=== PATIENT | female | born 1945 | race Caucasian/White ===

== ENCOUNTER 2024-05-18 14:44 | Inpatient (IN) | payer OTHER, SELFPAY ==
[2024-05-18] VITALS (9 sets, daily range): BP systolic 109–187; BP diastolic 55–106; BMI 33.8
--- NOTE | 2024-05-18 10:36 | ED.GENMED ---
History of Present Illness
<Kandis Tolbert PA-C - Last Filed: 05/18/24 18:48>
General
Chief Complaint: Change in Mental Status
Source: patient and family
Exam Limitations: none
Time Seen by Provider: 05/18/24 10:07
Nursing documentation reviewed up to this point in time: agreed with
History of Present Illness
History of Present Illness:
78-year-old female presents to the emergency department with family for evaluation of altered mental status. Patient and family state that at some time on Wednesday they noticed an acute change in her mental status stating that she appeared much more
confused. Apparently she forgot the code to the garage and had a few other instances of acute confusion and states that she is not acting herself. Patient herself does agree that she feels 'off '. Symptoms have persisted a few days and so they
brought her in for evaluation. They do state that she has seemed somewhat unstable on her feet and 'shaky '.
Patient denies any headache or recent trauma. Patient denies any dizziness, visual changes, chest pain, or shortness of breath. Patient denies any urinary symptoms.
Patient has a history of hypertension for which she is somewhat noncompliant with BP meds. She also is a history of PE for which she is prescribed Eliquis and is also somewhat noncompliant
Past History
<Kandis Tolbert PA-C - Last Filed: 05/18/24 18:48>
Past History
ED Past Medical History: HTN; Negative Hypercholesterolemia, IDDM, NIDDM, PR or Renal failure
ED Past Surgical History: Cholecystectomy
Social History
Tobacco: Non-smoker
Alcohol: Occasional
Drug: None
Personal:
Living: with family
Employment: Employed
Family History
Family History: Hypertension
Review of Systems
<Kandis Tolbert PA-C - Last Filed: 05/18/24 18:48>
Review of Systems
Allergies reviewed?: Yes
All Other Systems: ROS reviewed and negative except as documented in HPI and ROS
Phy Exam
<Kandis Tolbert PA-C - Last Filed: 05/18/24 18:48>
Physical Exam
Physical Exam:
Vitals: Hypertensive, otherwise vital signs stable.
General: Patient is well appearing, no acute distress
Skin: Warm and dry, no rashes or lesions
Head: Normocephalic, atraumatic
Eyes: Sclera nonicteric. EOMs intact. No nystagmus. Pupils equal round reactive light bilaterally
Throat: Protecting airway
Neck: Normal ROM, no cervical spine tenderness, no meningismus
Cardiac: Regular rate and rhythm, no murmurs.
Pulm: Normal respiratory effort, no wheezes, rales, rhonchi heard on exam.
Abdomen: Abdomen soft. no abdominal tenderness.
Extremities: No evidence of cyanosis or edema
Neuro: AAOx2 to person and place, not time. CN II-XII intact. No focal neurologic deficits.
Psychiatric: Normal affect.
Course
<Kandis Tolbert PA-C - Last Filed: 05/18/24 18:48>
Orders/Labs/Results
Orders:
Orders
05/18/24 10:38
Electrocardiogram (*1) Urgent
Reason for Study: Hypertension, Benign
CT Head W/o Iv Contrast Urgent
Comment:
Reason For Exam: Hypertension, confusion
EKG- Treatment ONCE
05/18/24 11:05
Complete Blood Count/With Diff Urgent
Comprehensive Metabolic Panel Urgent
Troponin I Urgent
05/18/24 11:21
Aspirin Chewable [Low Strength Aspirin] 324 mg PO NOW STA
Lorazepam [Ativan] 1 mg IV NOW STA
05/18/24 11:40
Urinalysis Reflex To Culture Urgent
Date Specimen was Collected: 05/18/24
Time Specimen was Collected: 11:
Urine Microscopic Reflex Cult Urgent
Urine Culture Urgent
GUTIERREZ Source: U
Specimen Description:
Date Specimen was Collected: 05/18/24
Time Specimen was Collected: 11:
05/18/24 14:20
Admit/Transfer Patient As Directed
Co-Sign Provider:
Level of Care: Inpatient admission
Assign to:: Telemetry
Physician / Group: Hospitalist
Diagnosis: CVA
Reason for Telemetry: CVA/TIA
Date to Stop Telemetry: 05/21/24
Time to Stop Telemetry: 11:00
Reason for Hospitalization: CVA
Expected length of stay greater than two midnights?: Yes
ELOS- Estimated Length of Stay in days: 2
I certify the patient meets the requirements for IP care: Yes
05/18/24 14:24
Code Status As Directed
Resuscitation Status: Do not resuscitate
Reached after discussion with pt or family/Healthcare POA: Yes
DNR Bracelet Application ONCE
05/18/24 16:14
0.9% Sodium Chloride [Nss (Preservative Free)] See Protocol IV PRN PRN
Acetaminophen [Tylenol/Feverall] 650 mg RECTAL Q4HPRN PRN
Acetaminophen [Tylenol] 650 mg PO Q4HPRN PRN
FOLic ACID [Folvite] 1 mg PO DAILY
FOLic ACID [Folvite] 1 mg 0.9% Sodium Chloride 50 ml [Nss] 50 ml IV DAILYPRN
Lorazepam [Ativan] 0.5 mg IV Q1HPRN PRN
Lorazepam [Ativan] 1 mg IV Q1HPRN PRN
05/18/24 16:14
Echo 2D MMode Color/Doppler Routine
Reason for Study: stroke/TIA
Case Management Consult ONCE
Case Management Consult: Discharge Planning
Comment: stroke/tia
Case Management Consult Once
Case Management Consult: Other
Comment: Substance abuse counseling
DIETARY CONSULT Routine
Reason for Consult: Nutrition support, possible refeeding guidelines
DIETARY CONSULT Routine
Reason for Consult: stroke/TIA
NEUROLOGY CONSULT Urgent
Consulting Provider: Ellis Dias
Was physician already notified: Yes
Reason for consult: cva
Stock Crane Operator Urgent
Alcohol Urgent
B-Hydroxybutyrate Urgent
GGTP Urgent
Magnesium Urgent
PTT Urgent
Phosphorus Urgent
Prothrombin Time Urgent
Urine Drug Abuse Screen Routine
MR Brain Without Contrast Routine
Comment:
Reason For Exam: stroke/TIA
Recent pill cam endoscopy?: No
Activity As Directed
Activity Level: Ambulate
MSAS SCORE As Directed
MSAS Score 0-4: Repeat MSAS every 2 hours until 0-4 for three consecutive assessments, then every 4 hours x 48
hours.
MSAS Score 5-7: For MILD withdrawl symptoms. Repeat MSAS and RASS every 2 hours
MSAS Score 8-11: For MODERATE withdrawal symptoms. Repeat MSAS and RASS every 1 hour. Consider ICU or IMU
level of care.
MSAS Score > 11: For SEVERE withdrawal symptoms. Repeat MSAS and RASS every 1 hour. Notify provider, consider
ICU level of care.
MSAS Additional Instructions: If no improvement or no decrease in score from severe to moderate within 12
hours, consult psychiatry
MSAS Notify Provider: Notify provider if patient requires more than 10 mg of Lorazepam in eight hour period.
NIH Stroke Scale As Directed
Directions: Per protocol
Comment: every shift and with any change in condition or mental status
Neurological Checks As Directed
Frequency: q4h
Additional Instructions:: q4h x 24h upon admission to the floor, then qshift & with any change in condition
and mental status
Patient Education As Directed
Type: Other education
Other patient education: statin
Patient Education As Directed
Type: Stroke education packet
Comment: provide to patient and family
Swallow Screening CVA/TIA ONLY As Directed
Comment: NPO until swallowing screening completed
If patient FAILS swallow screening:: NPO, Speech Therapy consult, Aspiration Precautions
If patient PASSES swallow screening, diet:: Sodium, 4 Gram
Above diet order entered?: Yes- passed screening
Vital Signs As Directed
Frequency: Per unit guidelines
Ot Eval And Treat Routine
Pt Eval And Treat Routine
Activity Level: Ambulate
Speech Therapy Eval & Treat Routine
DX Deep Vein Thrombosis Video Routine
05/18/24 16:27
Lorazepam [Ativan] 0.5 mg PO Q2HPRN PRN
05/18/24 18:00
Atorvastatin [Lipitor] 20 mg PO QPM
Enoxaparin Sodium [Lovenox] 40 mg SC QPM
05/18/24 20:00
Thiamine Injection 200 mg IV Q12
05/19/24 06:00
Cardiovascular Evaluation IN AM
05/21/24 11:00
DC Protocol for Telemetry ONCE
05/21/24 20:00
Thiamine HCl [Vitamin B1] 100 mg PO BID
Abnormal Lab Results
05/18/24 05/18/24
11:05 11:40
RBC 5.61 H 10^6/uL
(4.20-5.40)
Hgb 16.4 H g/dL
(12.0-16.0)
Hct 47.8 H %
(37.0-47.0)
Absolute Lymphs (auto) 1.0 L 10^3/uL
(1.2-3.4)
Lymphocytes % 14.2 L %
(20.5-51.1)
Glucose 155 H mg/dl
(70-99)
AST 78 H U/L
(14-36)
ALT 61 H U/L
(0-35)
Alkaline Phosphatase 131 H U/L
(38-126)
Urine Nitrite (Reflex) Positive A
(Negative)
Urine Bacteria (Reflex) Many A
(Negative)
05/18/24 11:05
05/18/24 11:05
Vital Signs
Initial and Last Documented VS:
Initial Vital Signs
Temp Pulse Resp BP Pulse Ox
98.7 F 65 18 184/106 97
05/18/24 09:59 05/18/24 09:59 05/18/24 09:59 05/18/24 09:59 05/18/24 09:59
Last Documented Vital Signs
Temp Pulse Resp BP Pulse Ox
97.7 F 93 18 142/90 93
05/18/24 17:08 05/18/24 17:08 05/18/24 17:08 05/18/24 17:08 05/18/24 17:08
<Richar Avilez, DO - Last Filed: 05/18/24 11:25>
Orders/Labs/Results
Orders:
Orders
05/18/24 10:38
Electrocardiogram (*1) Urgent
Reason for Study: Hypertension, Benign
CT Head W/o Iv Contrast Urgent
Comment:
Reason For Exam: Hypertension, confusion
EKG- Treatment ONCE
05/18/24 11:05
Complete Blood Count/With Diff Urgent
Comprehensive Metabolic Panel Urgent
Troponin I Urgent
05/18/24 11:21
Aspirin Chewable [Low Strength Aspirin] 324 mg PO NOW STA
Lorazepam [Ativan] 1 mg IV NOW STA
05/18/24 11:40
Urinalysis Reflex To Culture Urgent
Date Specimen was Collected: 05/18/24
Time Specimen was Collected: 11:27
Urine Microscopic Reflex Cult Urgent
Urine Culture Urgent
GUTIERREZ Source: U
Specimen Description:
Date Specimen was Collected: 05/18/24
Time Specimen was Collected: 11:27
05/18/24 14:20
Admit/Transfer Patient As Directed
Co-Sign Provider:
Level of Care: Inpatient admission
Assign to:: Telemetry
Physician / Group: Hospitalist
Diagnosis: CVA
Reason for Telemetry: CVA/TIA
Date to Stop Telemetry: 05/21/24
Time to Stop Telemetry: 11:00
Reason for Hospitalization: CVA
Expected length of stay greater than two midnights?: Yes
ELOS- Estimated Length of Stay in days: 2
I certify the patient meets the requirements for IP care: Yes
05/18/24 14:24
Code Status As Directed
Resuscitation Status: Do not resuscitate
Reached after discussion with pt or family/Healthcare POA: Yes
DNR Bracelet Application ONCE
05/18/24 16:14
0.9% Sodium Chloride [Nss (Preservative Free)] See Protocol IV PRN PRN
Acetaminophen [Tylenol/Feverall] 650 mg RECTAL Q4HPRN PRN
Acetaminophen [Tylenol] 650 mg PO Q4HPRN PRN
FOLic ACID [Folvite] 1 mg PO DAILY
FOLic ACID [Folvite] 1 mg 0.9% Sodium Chloride 50 ml [Nss] 50 ml IV DAILYPRN
Lorazepam [Ativan] 0.5 mg IV Q1HPRN PRN
Lorazepam [Ativan] 1 mg IV Q1HPRN PRN
05/18/24 16:14
Echo 2D MMode Color/Doppler Routine
Reason for Study: stroke/TIA
Case Management Consult ONCE
Case Management Consult: Discharge Planning
Comment: stroke/tia
Case Management Consult Once
Case Management Consult: Other
Comment: Substance abuse counseling
DIETARY CONSULT Routine
Reason for Consult: Nutrition support, possible refeeding guidelines
DIETARY CONSULT Routine
Reason for Consult: stroke/TIA
NEUROLOGY CONSULT Urgent
Consulting Provider: Ellis Dias
Was physician already notified: Yes
Reason for consult: cva
Stock Crane Operator Urgent
Alcohol Urgent
B-Hydroxybutyrate Urgent
GGTP Urgent
Magnesium Urgent
PTT Urgent
Phosphorus Urgent
Prothrombin Time Urgent
Urine Drug Abuse Screen Routine
MR Brain Without Contrast Routine
Comment:
Reason For Exam: stroke/TIA
Recent pill cam endoscopy?: No
Activity As Directed
Activity Level: Ambulate
MSAS SCORE As Directed
MSAS Score 0-4: Repeat MSAS every 2 hours until 0-4 for three consecutive assessments, then every 4 hours x 48
hours.
MSAS Score 5-7: For MILD withdrawl symptoms. Repeat MSAS and RASS every 2 hours
MSAS Score 8-11: For MODERATE withdrawal symptoms. Repeat MSAS and RASS every 1 hour. Consider ICU or IMU
level of care.
MSAS Score > 11: For SEVERE withdrawal symptoms. Repeat MSAS and RASS every 1 hour. Notify provider, consider
ICU level of care.
MSAS Additional Instructions: If no improvement or no decrease in score from severe to moderate within 12
hours, consult psychiatry
MSAS Notify Provider: Notify provider if patient requires more than 10 mg of Lorazepam in eight hour period.
NIH Stroke Scale As Directed
Directions: Per protocol
Comment: every shift and with any change in condition or mental status
Neurological Checks As Directed
Frequency: q4h
Additional Instructions:: q4h x 24h upon admission to the floor, then qshift & with any change in condition
and mental status
Patient Education As Directed
Type: Other education
Other patient education: statin
Patient Education As Directed
Type: Stroke education packet
Comment: provide to patient and family
Swallow Screening CVA/TIA ONLY As Directed
Comment: NPO until swallowing screening completed
If patient FAILS swallow screening:: NPO, Speech Therapy consult, Aspiration Precautions
If patient PASSES swallow screening, diet:: Sodium, 4 Gram
Above diet order entered?: Yes- passed screening
Vital Signs As Directed
Frequency: Per unit guidelines
Ot Eval And Treat Routine
Pt Eval And Treat Routine
Activity Level: Ambulate
Speech Therapy Eval & Treat Routine
DX Deep Vein Thrombosis Video Routine
05/18/24 16:27
Lorazepam [Ativan] 0.5 mg PO Q2HPRN PRN
05/18/24 18:00
Atorvastatin [Lipitor] 20 mg PO QPM
Enoxaparin Sodium [Lovenox] 40 mg SC QPM
05/18/24 20:00
Thiamine Injection 200 mg IV Q12
05/19/24 06:00
Cardiovascular Evaluation IN AM
05/21/24 11:00
DC Protocol for Telemetry ONCE
05/21/24 20:00
Thiamine HCl [Vitamin B1] 100 mg PO BID
Abnormal Lab Results
05/18/24 05/18/24
11:05 11:40
RBC 5.61 H 10^6/uL
(4.20-5.40)
Hgb 16.4 H g/dL
(12.0-16.0)
Hct 47.8 H %
(37.0-47.0)
Absolute Lymphs (auto) 1.0 L 10^3/uL
(1.2-3.4)
Lymphocytes % 14.2 L %
(20.5-51.1)
Glucose 155 H mg/dl
(70-99)
AST 78 H U/L
(14-36)
ALT 61 H U/L
(0-35)
Alkaline Phosphatase 131 H U/L
(38-126)
Urine Nitrite (Reflex) Positive A
(Negative)
Urine Bacteria (Reflex) Many A
(Negative)
05/18/24 11:05
05/18/24 11:05
Vital Signs
Initial and Last Documented VS:
Initial Vital Signs
Temp Pulse Resp BP Pulse Ox
98.7 F 65 18 184/106 97
05/18/24 09:59 05/18/24 09:59 05/18/24 09:59 05/18/24 09:59 05/18/24 09:59
Last Documented Vital Signs
Temp Pulse Resp BP Pulse Ox
97.7 F 93 18 142/90 93
05/18/24 17:08 05/18/24 17:08 05/18/24 17:08 05/18/24 17:08 05/18/24 17:08
<Kandis Tolbert PA-C - Last Filed: 05/18/24 18:48>
MDM/Problems Addressed
Differential Diagnosis Includes:
Not limited to: CVA, medication side effect, metabolic encephalopathy, UTI, hyponatremia, hypertensive urgency/emergency
MDM/Problems Addressed:
78-year-old female with history as documented presenting for evaluation of acute change in mental status occurring 2 days ago associated with some odd behavior. Patient somewhat noncompliant with Eliquis and hypertensive medications. No other
infectious symptoms or neurologic complaints. No visual changes. No headache or dizziness. No recent trauma. Patient is hypertensive on arrival, otherwise vital signs stable. Patient without any focal neurologic deficits on exam. She is alert
and oriented x [address], not time. Heart regular rate and rhythm. Lungs clear bilaterally. EKG shows sinus tachycardia but any acute ischemic changes. Labs noted no clinically significant abnormalities. Troponin is normal. Urine
is positive for nitrate but no clear indication of infection. She has no urinary symptoms at this time. Do not suspect cause for acute change in mental status.
Head CT does show evidence of a likely subacute left ROTOFORMER BACKTENDER nonhemorrhagic infarct. No evidence for acute ischemic stroke. Patient was given aspirin. Patient will be admitted for further stroke workup and management. Discussed with
hospitalist�accepted to hospitalist service. Patient seen with attending physician
Chronic conditions affecting care:
History of DVT/PE on Eliquis, hypertension
Acute Exacerbation and/or Progression of Chronic Illness:
Acutely hypertensive
<Kandis Tolbert PA-C - Last Filed: 05/18/24 18:48>
*Radiology
Radiology exam reviewed: preliminary read by ED provider and radiology read reviewed
*Pulse Oximetry
Patient hypoxic: no
*EKG
Interpreted by ED Provider?: Yes
EKG Intrepretation Date: 05/18/24
Interpretation: abnormal
Comparison EKG: no comparison EKG present
Heart Rate: 111
Rate: tachycardiac
Rhythm: sinus and PVC's
QRS Pattern: normal QRS
Ischemia: non-specific ST changes
*Senior Data Scientist Interpretation
Rate: tachycardiac
Interpretation: normal
Heart Rate: 102
Rhythm: sinus
*Critical Care Note
Total Time (30-74mins, 75-104mins- exclusive of procedures): Not Applicable
<MIN Akhtar Last Filed: 05/18/24 18:48>
Patient Management
Discussion with other providers: Hospitalist
Escalation/DeEscalation of care consider admission/obs:
Admit for stroke workup/further management
ED Attending Note
<Kandis Tolbert PA-C - Last Filed: 05/18/24 18:48>
-
Portions of this chart may have been created with voice recognition software.� Occasional wrong word or��sound alike� substitutions may have occurred due to the inherent limitations of voice recognition software.
<Richar Avilez DO - Last Filed: 05/18/24 11:25>
ED Attending Note
Patient seen and examined by attending physician: Yes
I performed the substantive portion of visit, reviewed & personally made and approve the management plan that is documented in note by myself or JOSÉ MIGUEL.: Yes
ED Attending Note:
I have seen and evaluated the patient with a [id number] encounter. I have spoken to the advance practicer provider and involved in the medical history, the physical exam, medical decision making.
Evaluation and management service: agree unless noted differently below.
Results interpretation: agree unless noted differently below.
Focused HPI: 78-year-old female presenting with family for evaluation of altered mental status. They have noted odd behavior over the past few days which is unlike her. Patient does acknowledge that she feels off
Physical exam: Sitting in bed comfortably. Anxious and upset. Mildly tachycardic. No focal deficit
Medical Decision Making: CT head concerning for subacute stroke. Will give aspirin. Patient does acknowledge noncompliance with blood pressure medicine. Will admit for further stroke workup
Discharge Plan
Departure
Patient Disposition: Admit
Date of Disposition: 05/18/24
Time of Disposition: 11:20
Presentation/result/management discussed w/ accepting MD/DO: Hospitalist
Discharge Problem:
CVA (cerebral vascular accident)
Interventions
Interventions:
*Risk Screen - Suicide Last Done: 05/18/24 10:01
*General Assessment Last Done: 05/18/24 10:01
*Neglect/Abuse Screening Last Done: 05/18/24 10:01
*ED COVID-19 Vaccine History Last Done: 05/18/24 16:33
*Nursing Disposition Last Done: 05/18/24 16:26
ED- Neurological Assessment Last Done: 05/18/24 10:52
ED Swallowing Screen Last Done: 05/18/24 10:37
Discharge Date and Time
Discharge Date/Time: 05/18/24 16:27
[2024-05-18 11:19] LABS: % Basophils 0.7 % (0-2); % Eosinophils 2.8 % (0-6); % Immature Granulocytes 0.3 % (0-0.5); % Lymphocytes 14.2 % (20.5-51.1); % Monocytes 6.9 % (1.7-9.3); % Neutrophils 75.1 % (42.2-75.2); Absolute Basophils 0.1 10^3/uL (0-0.2); Absolute Eosinophils 0.2 10^3/uL (0-0.7); Absolute Monocytes 0.5 10^3/uL (0.1-0.6); Absolute Neutrophils 5.1 10^3/uL (1.4-6.5); Hematocrit 47.8 % (37.0-47.0); Hemoglobin 16.4 g/dL (12.0-16.0); Mean Corp Hgb Conc. 34.3 g/dL (33.0-37.0); Mean Corpuscular Hgb 29.2 pg (27.0-31.0); Mean Corpuscular Volume 85.2 fL (81.0-99.0); Mean Platelet Volume 9.5 fL (7.4-10.4); Nucleated Red Blood Cells % 0 %; Platelet Count 232 10^3/uL (130-400); Red Blood Cell Count 5.61 10^6/uL (4.20-5.40); Red Cell Dist. Width 13.2 % (11.5-14.5); White Blood Cell Count 6.8 10^3/uL (4.8-10.8)
[2024-05-18 11:31] LABS: ALT (SGPT) 61 U/L (0-35); AST (SGOT) 78 U/L (14-36); Albumin 4.3 g/dl (3.5-5.0); Alkaline Phosphatase 131 U/L (38-126); Blood Urea Nitrogen 11 mg/dl (7-17); Calcium 9.4 mg/dl (8.4-10.2); Carbon Dioxide 25 mmol/L (22-30); Chloride 102 mmol/L (98-107); Glucose 155 mg/dl (70-99); Sodium 136 mmol/L (135-145); Total Bilirubin 0.8 mg/dl (0.2-1.3); Total Protein 7.2 g/dl (6.3-8.2); eGFR > 60.00
[2024-05-18] MEDS: LOW STRENGTH ASPIRIN 324 MG PO (11:37)
[2024-05-18] MEDS: ATIVAN 1 MG IV (11:37)
[2024-05-18 11:43] LABS: Troponin I < 0.012 ng/ml
[2024-05-18 12:21] LABS: Urine Albumin Trace (Neg - Trace); Urine Bilirubin Negative (Negative); Urine Character Clear (Clear); Urine Color Yellow; Urine Glucose Negative (Negative); Urine Ketone Negative (Negative); Urine Leukocyte Negative (Negative); Urine Nitrite Positive (Negative); Urine Occult Blood Negative (Negative); Urine Specific Gravity 1.005 (<1.030); Urine Urobilinogen Negative (Neg - 1+)
[2024-05-18 12:43] LABS: Urine Bacteria Many (Negative); Urine Red Blood Cell 0-2 /HPF (0-2); Urine Urothelial Cell 0-2 /LPF (FEW)
--- NOTE | 2024-05-18 13:41 | HPS.HSE ---
Family Physician
-
Family Physician: Luciano Price
Chief Complaint
-
Mental status change
History of Present Illness
78-year-old female with mental status change.
She forgot to go to the garage and a few other instances and had some confusion. Son and daughter at bedside both state that the patient has been having some decline in her cognition for the past 3 years. She was bad for the past 2 days. No fever
patient denies any headache, nausea, numbness tingling, weakness, dysphagia, diplopia or change in vision.
Medical History
Past Medical History
Past Medical History: Reports Other
Additional Past Medical History:
History of pulmonary embolism, hypertension, DVT right leg, history of diverticulitis, peptic ulcer disease, nephrolithiasis, osteoarthritis
Past Surgical History: Reports Other
Additional Past Surgical History:
Cholecystectomy procedure for kidney stone
Social History
Tobacco: Former Smoker
Alcohol: Other (Drinks 2 glass of water every other day)
Drug: None
Living: With Family
Family History
Family History: Other (Mother of an aneurysm in the brain)
Allergies / Home Medications
Allergies reflects when Allergies were last updated in [facility].
Home Medications with original date entered in [facility]
Allergy/Medication List:
Allergies
Allergy/AdvReac Type Severity Reaction Status Date / Time
Iodinated Contrast Media Allergy Hives Verified 05/18/24 10:00
[IV Dye, Iodine Containing
Contrast ]
Home Medications
amlodipine 10 mg-benazepril 20 mg capsule 1 cap PO DAILY Blood Pressure 05/18/24
apixaban 5 mg tablet (Eliquis) 5 mg PO BID Blood Clot prev; h/o PE 05/18/24
Review of Systems
-
A 12 point ROS was completed and negative except as noted: Yes
Respiratory: Denies Trouble Breathing
Cardiac: Denies Chest Pain
Neurological: Reports Other (Confusion); Denies Headache, Weakness or Numbness
Physical Exam
Vital Signs
Vital Signs
Temp Pulse Resp BP Pulse Ox
98.7 F 100 29 153/67 93
05/18/24 09:59 05/18/24 12:00 05/18/24 12:00 05/18/24 12:00 05/18/24 12:00
Physical Exam
General: Comfortable and Conversant
Respiratory: Clear
Cardiac: S1/S2 and Regular Rhythm
GI: Soft, Non Tender and Normal Bowel Sounds
Musculoskeletal: No Edema
Neuro: Awake, Alert, No Motor Deficits, Cranial Nerves Intact, No Sensory Deficits and DTR's Intact & Symmetrical
Psych: Confused (Appears to have cognitive dysfunction) and Other
Laboratory Results
-
05/18/24 11:05
05/18/24 11:05
Laboratory Results
Total Bilirubin 0.8 mg/dl (0.2-1.3) 05/18/24 11:05
AST 78 U/L (14-36) H 05/18/24 11:05
ALT 61 U/L (0-35) H 05/18/24 11:05
Alkaline Phosphatase 131 U/L (38-126) H 05/18/24 11:05
Troponin I < 0.012 ng/ml 05/18/24 11:05
Data Reviewed
-
CT Scan: Report Reviewed by me (CT of the head-subacute left VP SALES territory nonhemorrhagic infarct. No midline shift or mass effect. Ex-vacuo dilatation of the left lateral ventricle. Global parenchymal volume loss)
Medical Tests (Nuc Med, Echo, EKG etc): Image Personally Visualized and interpreted (Sinus tachycardia with rate of 111, premature supraventricular complexes, inferior infarct age undetermined.)
Impression/Plan
-
IMPRESSION/PLAN:
# Mental status change
Admit to telemetry
Differentials include stroke versus other causes like infection
Proceed with neurochecks, NIH scale
Permissive hypertension
MRI of the brain
Start Statin
Lipid Panel in am
Neurology evaluation
PT OT and speech eval
Urinalysis not consistent with a UTI
# Possible decline in cognitive function over the past 3 years
Cognitive evaluation as outpatient discussed with patient's son and daughter
# Hypertension-hold amlodipine-benazepril
Permissive hypertension
# History of PE and DVT -Eliquis on hold for now and restart when okay with neurology
DVT/PE was in 2020. Only 1 instance
Unclear why she is still on anticoagulation. Family states that she has not seen a clinical application manager or station tender PCP keeps around anticoagulation.
# History of nephrolithiasis
# Peptic ulcer disease-does not seem to be on any medicines
# Diverticulosis
# Osteoarthritis
# Alcohol use-2 drinks of vodka every other day per son. Discussed that she needs to stop it
MSAS protocol and also thiamine supplementation
# DVT prophylaxis-Lovenox
# CODE STATUS- DNR per D/W Pt and daughter
Discussed with son and Daughter at bedside
[2024-05-18] MEDS: LOVENOX 40 MG SC (17:26)
[2024-05-18] MEDS: FOLVITE 1 MG PO (17:28)
[2024-05-18] MEDS: LIPITOR 20 MG PO (17:28)
--- NOTE | 2024-05-18 18:27 | PTCARENOTE ---
Patient received from ER at 1600 awake and alert . Able to follow simple commands. Did not know month, knew her age. Family stated patient has had difficulty over last few days with word finding. NIH completed . Urine pending. Swallow eval
complete and passed. Pt on bed alarm but utilizing call fierro . Family in room at present. No c/o pain.
[2024-05-18] MEDS: THIAMINE INJECTION 200 MG IV (20:00)
[2024-05-18 21:47] LABS: GGTP 128 U/L (12-43); Phosphorus 2.9 mg/dl (2.5-4.5)
[2024-05-18 21:51] LABS: Alcohol None Detected
[2024-05-19] VITALS (7 sets, daily range): BP systolic 126–192; BP diastolic 75–95; PULSE 53; O2SAT 98
--- NOTE | 2024-05-19 08:07 | W.PN.HOSP.TC ---
Addendum entered and electronically signed by Jose Alberto Pillai MD 05/19/24 17:00:
ECHO-Normal biventricular size and systolic function without regional wall motion abnormality. Estimated LVEF 60-65%.Mild concentric left ventricular hypertrophy.Mild aortic stenosis. Mild aortic regurgitation.Interatrial septum is intact with no
evidence of shunting by color flow Doppler.
CUS - Less than 50 % stenosis
MRI- MULTIPLE ACUTE ISCHEMIC INFARCTS in the LEFT CEREBRAL HEMISPHERE involving the cortical dave matter and white matter of the left frontal, parietal, and occipital lobes measuring up to 4.8 cm in size in the posterior left parietal-occipital lobe
junction. Severe white matter leukoaraiosis in the frontal and parietal lobes.Mild diffuse cerebral and cerebellar volume loss. Moderate mucosal disease in the left sphenoid sinus.
I personally performed a history and physical exam of the patient and discussed management with the resident. I reviewed the resident's note and agree with the documented findings and plan of care HPI/CC except change in documentation.
CVS: S1-S2 normal
Chest: CTA B/L
Abdomen: Soft, NT / Bowel sounds present
Extremities: No edema, normal pulses
MANAGEMENT PROFESSIONAL: Non focal exam, Variable exam for visual field cut on the right inferior quadrant
# Acute and ischemic infarct in the left cerebral hemisphere, parietal and occipital lobes
Possibly atheroembolic
Intracranial atherosclerosis noted on MRA
Continue aspirin, statin
Restart Eliquis on 05/21/2024 along with aspirin per neurology
Echo and carotid ultrasound ordered
PT OT and speech eval
Patient should not be driving
Outpatient library monitor for 2 weeks and if no A-fib then Linq
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
# B12 deficiency-needs replacement. 1000 mcg IM daily for now. Then weekly with PCP . (Resident to call and arrange with PCP office tomorrow)
# Abnormal urine culture will do 3 days of ceftriaxone to treat cystitis
# Hypertension-eventually restart amlodipine/benazepril
# History of PE and DVT -Eliquis on hold for now and restart when okay with neurology
DVT/PE was in 2020. Only 1 instance
Unclear why she is still on anticoagulation. Family states that she has not seen a academic department chair or alteration worker PCP keeps around anticoagulation.
# History of nephrolithiasis
# Elevated LFTs-likely secondary to alcohol use. Discussed with patient's family that she needs to stop alcohol and repeat LFTs as OP
# Peptic ulcer disease-does not seem to be on any medicines. Add Pepcid with Anticoagulant and antiplatelet and alcohol
# Diverticulosis
# Osteoarthritis
# Alcohol use-2 drinks of vodka every other day per son. Discussed that she needs to stop it.MSAS protocol and also thiamine supplementation
# DVT prophylaxis-Lovenox
# CODE STATUS- DNR per D/W Pt and daughter
D/W family
D/W Neurology
Tiokme more than 50 min
Original Note:
Today's Communication/Plan
-
Brain MRI pending
Assessment / Plan
Assessment / Plan
# Mental status change
- stroke versus other causes like infection
- Permissive hypertension
- Pending MRI of the brain
- Start Statin
- Lipid Panel in am
- Nuero consulted
- PT OT and speech eval
- Urinalysis not consistent with a UTI
- Carotid USG: B/L : A mix of calcified and soft plaque is identified in the proximal internal carotid artery. Carotid velocity profile is consistent with less than 50% stenosis. Vertebral artery flow is antegrade
CT Head 05/18/24: Subacute left RESIDENTIAL SUPPORT WORKER territory nonhemorrhagic infarct. No midline shift or mass effect.
# Possible decline in cognitive function over the past 3 years
Cognitive evaluation as outpatient discussed with patient's son and daughter
# Hypertension-hold amlodipine-benazepril
Permissive hypertension
- TTE pending
# History of PE and DVT -Eliquis on hold for now and restart when okay with neurology
DVT/PE was in 2020. Only 1 instance
Unclear why she is still on anticoagulation. Family states that she has not seen a academic department chair or alteration worker PCP keeps around anticoagulation.
# History of nephrolithiasis
# Peptic ulcer disease-does not seem to be on any medicines
# Diverticulosis
# Osteoarthritis
# Alcohol use-2 drinks of vodka every other day per son. Discussed that she needs to stop it
MSAS protocol and also thiamine supplementation
# DVT prophylaxis-Lovenox
# CODE STATUS- DNR per D/W Pt and daughte
Anticipated Discharge: Within 24 hours
Subjective/Interval History
-
Date of Service: May 19, 2024
Objective Data
-
Labs:
Laboratory Results
05/18/24
16:14
PT Cancelled
INR Cancelled
APTT Cancelled
Vital Signs:
Vital Signs
Temp Pulse Resp BP Pulse Ox
97.4 F 82 10 164/95 98
05/19/24 07:58 05/19/24 07:58 05/19/24 07:58 05/19/24 07:58 05/19/24 07:58
I&O
05/18/24 05/19/24 05/20/24
06:59 06:59 06:59
Intake Total 480 / 480
Balance 480 / 480
Review of Systems
-
History Source: Patient
Constitutional: Denies Fever
Respiratory: Denies Cough
Cardiac: Denies Chest Pain
Abdomen/GI: Denies Abdominal Pain
Neuro: Denies Dizzy, Headache or Weakness
Physical Exam
-
General: Well Developed and Well Nourished
HEENT: Normocephalic and Atraumatic
Respiratory: Clear to Auscultation
Cardiac: Regular Rhythm
GI: Soft and Nontender
Skin: Warm and Dry
Neuro: Awake, Alert, Oriented, No Motor Deficits and No Sensory Deficits
Psych: Calm
Data Reviewed
-
Labs: Labs Reviewed by me, Discussed with Physician and Discussed with Patient
[2024-05-19] MEDS: THIAMINE INJECTION 200 MG IV ×2 (08:36→20:24)
[2024-05-19] MEDS: FOLVITE 1 MG PO (08:36)
[2024-05-19 09:46] LABS: HDL Cholesterol 36 mg/dl; LDL Cholesterol, Calculated 118 mg/dl; Total Cholesterol 191 mg/dl (50-199); Triglyceride 189 mg/dl (10-149); Very Low Density Lipoprotein 37 mg/dl (0-30)
--- NOTE | 2024-05-19 10:15 | CM ---
Patient seen bedside with sons, initial assessment completed. Patient resides with her son in a multiple level home, one step to enter. Patient denies DME, VN, or SNF. Patient confirms PCP Luciano Price, pharmacy [facility], confirms prescription
coverage. Patient denies food, housing/utility, transportation insecurities at home. CM received consult for substance use, offered [facility]/resources, patient declines. CM will watch for PT/OT evals, will continue to follow for all discharge planning
needs.
Plan; home no needs, watch for PT/OT evals.
[2024-05-19 11:46] LABS: TSH Reflex To Free T4 3.81 uIU/ml (0.47-4.68)
[2024-05-19 11:50] LABS: Ammonia < 9 umol/L (9-30)
[2024-05-19 11:51] LABS: Ferritin 47.8 ng/ml (11.1-264.0)
[2024-05-19 12:22] LABS: Folate 14.3 ng/ml (2.76-20); Vitamin B12 170 pg/ml (239-931)
[2024-05-19 12:45] LABS: % Basophils 0.9 % (0-2); % Eosinophils 4.5 % (0-6); % Immature Granulocytes 0.3 % (0-0.5); % Lymphocytes 16.4 % (20.5-51.1); % Monocytes 5.8 % (1.7-9.3); % Neutrophils 72.1 % (42.2-75.2); Absolute Basophils 0.1 10^3/uL (0-0.2); Absolute Eosinophils 0.3 10^3/uL (0-0.7); Absolute Lymphocytes 1.1 10^3/uL (1.2-3.4); Absolute Monocytes 0.4 10^3/uL (0.1-0.6); Absolute Neutrophils 4.9 10^3/uL (1.4-6.5); Hematocrit 43.5 % (37.0-47.0); Hemoglobin 15.2 g/dL (12.0-16.0); Mean Corp Hgb Conc. 34.9 g/dL (33.0-37.0); Mean Corpuscular Hgb 29.2 pg (27.0-31.0); Mean Corpuscular Volume 83.7 fL (81.0-99.0); Mean Platelet Volume 9.6 fL (7.4-10.4); Nucleated Red Blood Cells % 0 %; Platelet Count 267 10^3/uL (130-400); Red Cell Dist. Width 13.1 % (11.5-14.5); White Blood Cell Count 6.7 10^3/uL (4.8-10.8)
--- NOTE | 2024-05-19 12:59 | CON.NEURO4 ---
Addendum entered and electronically signed by Ellis Dias MD 05/19/24 14:55:
I saw and evaluated the patient I have reviewed note by Carine Valdes agree the findings of the following comments:
78-year-old woman with a past medical history of DVT/PE, hypertension and obesity presented to hospital with acute change in mental status since approximately 05/16, her family characterizes this change as having some difficulty with operating common
objects like a television remote and also having some confused speech and short-term memory difficulties. This seemed to be an abrupt and sudden change significantly different from the mild short-term memory loss they have observed the patient for
the past couple of years.
Patient has had history of DVT/PE and is on Eliquis 5 mg twice daily.
Neurologic examination significant for short-term memory difficulty her memory recall is 1/5 left after 5 minutes, has some mild word finding difficulties and difficulties with simple subtraction, also shows a right-sided inferior quadrantopia,
normal motor or sensory function and coordination, normal motor or sensory function no pronator drift and normal coordination.
Carotid ultrasound with no significant stenosis less than 50% bilaterally based on velocity criteria
Brain MRI shows acute infarcts in both the left MCA as well as left BLENDER/BRAZE APPLICATOR territories.
MRA of the head shows occlusion of the distal left M1 segment of the MCA artery, also evidence of intracranial atherosclerosis with right MCA artery intracranial stenosis, left clinoid segment carotid stenosis, left BLENDER/BRAZE APPLICATOR intracranial stenosis as well
3 mm saccular aneurysm on the right ICA cavernous segment. No type circulation of the left BLENDER/BRAZE APPLICATOR.
Assessment:
1) Acute ischemic stroke in both the left MCA and BLENDER/BRAZE APPLICATOR territory simultaneously. This could have occurred from a proximal embolic source such as cardiac or aortic sources. right-sided cavernous segmentCannot be from a left carotid source. A
different but a little less likely cause of stroke would be simultaneous strokes from intracranial atherosclerosis and different arterial circulations, does have significant intracranial atherosclerotic disease on MRA of the head. Hypertension is
main risk factor for stroke
2) Intracranial atherosclerotic disease noted on MRA of the head.
3) Left MCA occlusion should not be pursued for thrombectomy given already established infarcts on MRI brain, NIH of 1-2, and more than 48 hours since onset of stroke symptoms
4) History of DVT/PE on Eliquis
5) Hyperlipidemia
6) By history has had mild short term memory difficulties with no functional impairment from this, may be benign or mild cognitive impairment possibly from vascular causes
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
Recommendations
-Place on aspirin 81 mg daily for now
-Acceptable for restarting Apixaban 5 days after her initial stroke symptoms (05/21)
-I do feel that the risks of combined therapy of aspirin and Apixaban would be warranted since she has significant intracranial atherosclerotic disease
-Atorvastatin 40 mg daily
-Goal normotension, avoid aggressive normalization of BP with the left MCA occlusion
-NIH and neurologic checks
-Should not drive with the right inferior quadrantopia, my office will report to V
-Speech, PT/OT
-Check TTE
-Would recommend cardiac monitoring as outpatient, okay to start with short term monitoring of 1-2 weeks, if no atrial fibrillation found would benefit from LINQ device
-Can check a repeated MRA head in 1-2 years to assess any change in the right carotid cavernous aneurysm but this has sufficiently low risk of rupture I don't feel warrants opinion on intervention
Original Note:
Documented by User: Carine Valdes NP 05/19/24 13:24
Consultation - Neurology 4
-
CONSULTING PHYSICIAN: Joellen Dias MD
REFERRING PHYSICIAN: Hospitalists/Dr. Pillai
DICTATED BY: MADI Reed
DATE/TIME OF REQUEST: 05/18/24
DATE/TIME OF CONSULTATION: 05/19/24
Reason for Consultation: Change in mental status
History of Present Illness:
This is a 78-year-old right-handed female who has presented to the hospital on 05/18/24 with report of confusion. Patient has been followed by Neurology as an outpatient in the past by Dr. Jiménez for dizziness, memory change, and tremor. She has
not been to the office since 2021. CT head imaging at that time was unremarkable. Neuro[employer] testing in 12/2021 was 118%, no depression.
Patient's son lives with her. He reports that he has had mild short-term memory issues for the past 3 years. She still drives, shops, cooks, cleans, and manages their finances without any issues. On Wednesday05/15/24 she was at her baseline. The
following day on 05/16/24 he reports that she went to a casino during the day. She called him in the afternoon asking what the combination to get into their garage was, which she has never forgotten. He reports that when he came home from work that
evening she seemed somewhat confused and also couldn't operate their TV remote. He thought maybe she had a little too much to drink and that was why she was behaving bizarrely. The following day (05/17/24) her confusion persisted, she couldn't
operate her cell phone and her gait seemed slightly off-balance. She didn't want to come to the hospital until yesterday morning (05/18/24) he finally convinced her too. CT head was obtained on arrival in the ER and is suggestive of a subacute left
BLENDER/BRAZE APPLICATOR territory ischemic infarct, no LVO. She is on Eliquis 5mg BID due to a history of PE a few years ago. Her son reports that she sometimes forgets to take her medications. She was not a candidate for TNK/IAT due to being outside of the time
window. Today (05/19/24), she reports feeling at her baseline but her sons note she is still confused. She denies any headache, dizziness, vision changes, speech/swallow difficulty, numbness, weakness, chest pain, palpitations, and shortness of
breath.
Past Medical History: HTN, PE, migraines, short term memory loss
Surgical History: Cholecystectomy.
Family History: Mother- from a cerebral aneurysm rupture.
Social History: Every other day alcohol, 2 liquor drinks. Former smoker. Denies illicit drug use.
Allergies: Iodinated contrast media.
Home Medications: See below.
Review of Symptoms:
Patient denies any fever, headache, chest pain, shortness of breath, GI or symptoms.
�Per the HPI.�All systems are reviewed negative except above.
Physical Exam:
The patient is afebrile, abdomen is nondistended, breathing is unlabored, skin is warm and dry, no edema.
NIH Stroke Scale:
I performed the NIH stroke scale on the patient on 05/19/24 at 1100. The patient scored 1 points on the NIH stroke scale assessment, which were assigned as follows: See below.
Neurologic Examination:
The patient is awake, alert and oriented x 3. She is able to follow commands and answer questions appropriately. Severe difficulty with calculation questions. Able to state 8 state names. 1/5 word recall. There is no aphasia or dysarthria. On
cranial nerve assessment, pupils are 3 mm bilateral, round and reactive to light and accommodation. Visual arnold are absent in the RLQ. Extraocular movements are intact. Facial sensations are intact and bilaterally symmetrical, there is no facial
asymmetry. Hearing is intact bilaterally to normal conversation volume. Tongue palate and uvula are midline. Sternocleidomastoid strengths are full bilaterally. Motor strengths are 5/5 bilateral upper and lower extremities on medical research
[place] scale. There is no drift or involuntary movement noted. Deep tendon reflexes are 2+ bilateral upper and lower extremities and Babinski is absent bilaterally. Sensations of pain, touch, temperature and vibration are intact and bilaterally
symmetrical. There was no extinction noted on double simultaneous stimulation. Coordination is intact by finger to nose bilaterally.
Lab Results: See below.
Neuro Imaging:
1. CT Head 05/18/24: Subacute left BLENDER/BRAZE APPLICATOR territory nonhemorrhagic infarct. No midline shift or mass effect. Chronic/incidental findings as detailed in the body of the report.
Differentials for the patient's presentation include:
1. Subacute L BLENDER/BRAZE APPLICATOR territory ischemic stroke suggested by CT head imaging likely producing confusion and RLQ field cut.
2. Hypertension.
3. Possible mild cognitive impairment.
4. Vitamin B12 deficiency.
5. Urine culture positive for E. Coli.
Patient has the following risk factors for their symptoms: HTN, age
IV Tenecteplase/IAT candidacy: She is not a candidate due to outside of time window, no LVO.
Recommendations:
-MRI brain noncontrast, MRA head, and carotid ultrasound pending.
-Will resume home Eliquis 5mg BID based on MRI brain findings.
-TTE pending.
-Goal normotension.
-Infection workup/treatment per primary team.
-LDL goal <70. LDL is 118. Initiate atorvastatin 40mg daily.
-Goal normoglycemia, hbA1c is pending.
-MSAS protocol, thiamine/folate replacement.
-NIHSS and neurological checks per unit guidelines.
-B12 level is low at 170. Initiate cyanocobalamin 1000mcg PO daily.
-PT/OT/ST evaluations.
-DVT prophylaxis.
-No driving.
-Will follow pending results.
-Patient will need outpatient Neurology follow-up in 4-6 weeks, may see the [employer] or one of the physicians.
Discussed patient care with: Dr. Dias, the patient, patient's family.
Vital Signs and Labs
-
Vital Signs and Labs:
Vital Signs
Temp Pulse Resp BP Pulse Ox
97.4 F 82 10 164/95 98
05/19/24 07:58 05/19/24 07:58 05/19/24 07:58 05/19/24 07:58 05/19/24 07:58
Lab Results
05/19/24 12:17
05/18/24 11:05
PT Cancelled 05/18/24 16:14
INR Cancelled 05/18/24 16:14
APTT Cancelled 05/18/24 16:14
Sodium 136 mmol/L (135-145) 05/18/24 11:05
Potassium 4.0 mmol/L (3.5-5.1) 05/18/24 11:05
BUN 11 mg/dl (7-17) 05/18/24 11:05
Glucose 155 mg/dl (70-99) H 05/18/24 11:05
Calcium 9.4 mg/dl (8.4-10.2) 05/18/24 11:05
Phosphorus Cancelled 05/18/24 16:14
Lrr-Y-[id number] Pept Cancelled 05/18/24 10:36
LDL Cholesterol, Calc 118 mg/dl 05/19/24 08:12
Vitamin B12 170 pg/ml (239-931) L 05/19/24 08:12
Medications
-
Active Medications
Generic Name Dose Route Start Last Admin
Trade Name Freq PRN Reason Stop Dose Admin
Acetaminophen 650 mg 05/18/24 16:14
Acetaminophen 650 Mg Rectal Suppository RECTAL 06/15/24 16:13
Q4HPRN PRN
LAM, mild pain, or temp >100.4F
Acetaminophen 650 mg 05/18/24 16:14
Acetaminophen 325 Mg Tablet PO 06/15/24 16:13
Q4HPRN PRN
LAM, mild pain, or temp >100.4F
Atorvastatin Calcium 20 mg 05/18/24 18:00 05/18/24 17:28
Atorvastatin (Lipitor) 20 Mg Tablet PO 06/15/24 17:59 20 mg
QPM SAE Administration
Enoxaparin Sodium 40 mg 05/18/24 18:00 05/18/24 17:26
Enoxaparin Sodium 40 Mg/0.4 Ml Syringe SC 06/15/24 17:59 40 mg
QPM SAE Administration
Folic Acid 1 mg 05/18/24 16:14 05/19/24 08:36
Folic Acid 1 Mg Tablet PO 06/15/24 16:13 1 mg
DAILY SAE Administration
Folic Acid 1 mg/ Sodium 50.2 mls @ 200.8 mls/hr 05/18/24 16:14
Chloride IV 06/15/24 16:13
DAILYPRN PRN
if NPO
Lorazepam 0.5 mg 05/18/24 16:27
Lorazepam 0.5 Mg Tablet PO 06/15/24 16:26
Q2HPRN PRN
MSAS 5-7
Lorazepam 0.5 mg 05/18/24 16:14
Lorazepam 2 Mg/Ml Vial IV 06/15/24 16:13
Q1HPRN PRN
MSAS 8-11
Lorazepam 1 mg 05/18/24 16:14
Lorazepam 2 Mg/Ml Vial IV 06/15/24 16:13
Q1HPRN PRN
MSAS > 11
Lorazepam 0.5 mg 05/19/24 12:00
Lorazepam 2 Mg/Ml Vial IV 05/19/24 18:00
ONCE PRN PRN
prior to MRI
Sodium Chloride 0 ml 05/18/24 16:14
Sodium Chloride 0.9% (Preservative Free) 10 Ml Vial IV 06/15/24 16:13
PRN PRN
To dilute IV Ativan
Protocol
Sodium Chloride 0 flush 05/18/24 17:00
Sodium Chloride 0.9% (Flush) Syringe IV 06/15/24 16:59
PER PROTOCOL SAE
Sodium Chloride 0.25 ml 05/19/24 12:08
Nss (Pf) 10 Ml Vial For Ativan 0.5 Mg Dose IV 05/19/24 18:00
ONCE PRN PRN
IV LORAZEPAM DILUTION
Thiamine HCl 200 mg 05/18/24 20:00 05/19/24 08:36
Thiamine (100 Mg/Ml) 2 Ml Vial IV 05/21/24 08:01 200 mg
Q12 SAE Administration
Thiamine HCl 100 mg 05/21/24 20:00
Thiamine 100 Mg Tablet PO 06/18/24 19:59
BID SAE
Home Medications
�Medication �Instructions �Recorded
amlodipine 10 mg-benazepril 20 mg 1 cap PO DAILY Blood Pressure 05/18/24
capsule
apixaban 5 mg tablet (Eliquis) 5 mg PO BID Blood Clot prev; h/o PE 05/18/24
NIH Stroke Score
Subsequent NIH Scale
Date of Subsequent NIH Scale: 05/19/24
Time of Subsequent NIH Scale: 11:00
NIH Stroke Score
Level of Consciousness: 0 - Alert
LOC Questions: 0-Answers both correctly
LOC Commands: 0-Performs both correctly
Best Horizontal Gaze: 0-Normal
Visual Arnold: 1=Partial hemianopia
Facial Palsy: 0=Normal, symmetrical
Motor - Right Arm: 0=No drift 10 seconds
Motor - Left Arm: 0=No drift 10 seconds
Motor - Right Le-No drift 5 seconds
Motor - Left Le-No drift 5 seconds
Limb Ataxia: 0-Absent
Sensation: 0-Normal
Best Language: 0-No aphasia
Dysarthria: 0-Normal
Extinction and Inattention: 0-No abnormality
Total Score:: 1
Modified Dominique (mRS) Score
Modified [place] Scale (mRS): Moderate disability. Requires some help, able to walk unassisted.
Score: 3
Alteplase Contraindication
Inclusion and Exclusion criteria reviewed: Yes
Reasons for NON-Tx with Thrombolytics ABSOLUTE Exclusions: Greater than 4.5 hrs from onset of sxs

Documented by User: Ellis Dias MD 05/19/24 14:34
NIH Stroke Score
NIH Stroke Score
Total Score:: 1
Modified [place] (mRS) Score
Score: 3
[2024-05-19 14:16] LABS: Benzodiazepines Positive (Negative)
[2024-05-19 14:17] LABS: Amphetamines Negative (Negative); Barbiturates Negative (Negative); Buprenorphine Negative (Negative); Cocaine Negative (Negative); Marijuana Negative (Negative); Methadone Negative (Negative); Methamphetamines Negative (Negative); Opiates Negative (Negative); Phencyclidine Negative (Negative); Tricyclic Antidepressants Negative (Negative)
[2024-05-19 14:37] LABS: Fentanyl, Urine Negative (Negative)
--- NOTE | 2024-05-19 16:06 | PTOTSP ---
SPEECH THERAPY SWALLOW EVALUATION:
Patient exhibits grossly functional oropharyngeal swallow at this time. However, patient remains at risk for aspiration given confusion/memory impairments secondary to acute CVA. Recommend continue Regular texture diet, thin liquids. Medications
whole with thin liquid, one at a time. Aspiration precautions including: Upright positioning; Small single sips/bites; Slow rate of intake; Supervision with meals to ensure use of strategies; Monitor CXR and labs to assess for signs/symptoms of
aspiration. Speech therapy to follow, assess diet tolerance and modify as appropriate, provide continued diagnostic swallow therapy as appropriate, provide continued education regarding aspiration risks/precautions, and complete full
Speech/Language/Cognitive Communication Evaluation.
RECOMMEND:
1) Regular texture diet, thin liquids
2) Medications whole with thin liquid, one at a time
3) Aspiration precautions: Upright positioning; Small single sips/bites; Slow rate of intake; Supervision with meals to ensure use of strategies; Monitor CXR and labs to assess for signs/symptoms of aspiration
4) Speech therapy to follow and complete full Speech/Language/Cognitive Communication Evaluation
[2024-05-19 17:26] LABS: ALT (SGPT) 56 U/L (0-35); AST (SGOT) 70 U/L (14-36); Albumin 4.2 g/dl (3.5-5.0); Alkaline Phosphatase 125 U/L (38-126); Direct Bilirubin 0.3 mg/dl (0.0-0.4); Total Bilirubin 0.9 mg/dl (0.2-1.3)
[2024-05-19] MEDS: LOVENOX 40 MG SC (17:30)
[2024-05-19] MEDS: ASPIR LOW (ENTERIC COATED) 81 MG PO (17:30)
[2024-05-19] MEDS: LIPITOR 40 MG PO (17:30)
[2024-05-19] MEDS: ROCEPHIN 1000 MG IV (17:36)
[2024-05-19] MEDS: CYANOCOBALAMIN 1000 MCG IM (17:36)
[2024-05-19] MEDS: STERILE WATER FOR INJECTION 10 ML IV (17:36)
[2024-05-19] MEDS: PEPCID 20 MG PO (20:24)
[2024-05-20] VITALS (7 sets, daily range): BP systolic 127–174; BP diastolic 68–95
--- NOTE | 2024-05-20 07:37 | W.PN.HOSP.TC ---
Addendum entered and electronically signed by Jose Alberto Pillai MD 05/20/24 13:43:
I personally performed a history and physical exam of the patient and discussed management with the resident. I reviewed the resident's note and agree with the documented findings and plan of care HPI/CC except change in documentation.
Sitting and eating lunch.
Feeling oK
Echo 05/19/2024-normal biventricular size and systolic function. EF 60 to 65%. Mild concentric LVH. Mild . Mild AI.
Carotid ultrasound less than 50% stenosis
# Acute and ischemic infarct in the left cerebral hemisphere, parietal and occipital lobes
Possibly atheroembolic
Intracranial atherosclerosis noted on MRA
Continue aspirin, statin
Restart Eliquis on 05/21/2024 along with aspirin per neurology
PT OT and speech eval
Patient should not be driving-reviewed with patient and daughter
Outpatient monitoring engineer for 2 weeks and if no A-fib then Linq
This is important because right now she takes Eliquis for history of DVT and PE. If she has A-fib then Eliquis cannot be stopped
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
# B12 deficiency-needs replacement. 1000 mcg IM daily for now. Then weekly with PCP .
# Abnormal urine culture will do 3 days of ceftriaxone to treat cystitis
# Hypertension-eventually restart amlodipine/benazepril
# History of PE and DVT -Eliquis on hold for now and restart Eliquis 05/21/24 per neuro
DVT/PE was in 2020. Only 1 instance
#Elevated LFTS-possibly secondary to fatty liver and also alcohol-routine ultrasound
# History of nephrolithiasis
# Elevated LFTs-likely secondary to alcohol use. Discussed with patient's family that she needs to stop alcohol and repeat LFTs as OP
# Peptic ulcer disease-does not seem to be on any medicines. Add Pepcid with Anticoagulant and antiplatelet and alcohol
# Diverticulosis
# Osteoarthritis
# Alcohol use-2 drinks of vodka every other day per son. Discussed that she needs to stop it.MSAS protocol and also thiamine supplementation
# DVT prophylaxis-Lovenox (Eliquis to be restarted tomorrow)
# CODE STATUS- DNR per D/W Pt and daughter
Detailed discussion with the patient's cognitive function, stroke follow-up needs all questions answered
Discussed with nursing
Original Note:
Today's Communication/Plan
-
continue b12
fu with cardio
resume eliquis 05/21/24
Assessment / Plan
Assessment / Plan
# Acute and ischemic infarct in the left cerebral hemisphere, parietal and occipital lobes
- Likely reason of acute mental status change- improving
- Permissive hypertension
- continue aspirin and Statin
- Restart Eliquis on 05/21/2024 along with aspirin per neurology
- Urinalysis not consistent with a UTI
- Carotid USG: B/L : A mix of calcified and soft plaque is identified in the proximal internal carotid artery. Carotid velocity profile is consistent with less than 50% stenosis. Vertebral artery flow is antegrade
- Should not drive with the right inferior quadrantopia
- Atorvastatin 40 mg daily
- Phsyiatry consulted for [facility] per PT/OT recs
CT Head 05/18/24: Subacute left PEOPLESOFT HR DEVELOPER territory nonhemorrhagic infarct. No midline shift or mass effect.
# Possible decline in cognitive function over the past 3 years
-Cognitive evaluation as outpatient discussed with patient's son and daughter
# Cystitis
- UC + for E. Coli
- Iv ceftriaxone 2/3
# B12 deficiency-needs replacement.
- 1000 mcg IM daily for now. Then weekly with PCP .
# Hypertension
Permissive hypertension
- Echo: Normal biventricular size and systolic function without regional wall motion
abnormality. Estimated LVEF 60-65%.
- Not to stop Eliquis until eval by cardio OP
# History of PE and DVT -Eliquis to be resumed on 05/21/24 per neuro recs
- DVT/PE was in 2020. Only 1 instance
- Unclear why she is still on anticoagulation.
# History of nephrolithiasis
# Peptic ulcer disease-does not seem to be on any medicines
# Diverticulosis
# Osteoarthritis
# Alcohol use-2 drinks of vodka every other day per son. Discussed that she needs to stop it
- MSAS protocol and also thiamine supplementation
# DVT prophylaxis-Lovenox
# CODE STATUS- DNR per D/W Pt and daughte
Anticipated Discharge: Within 24 hours
Subjective/Interval History
-
Date of Service: May 20, 2024
Objective Data
-
Labs:
Laboratory Results
05/20/24
06:00
WBC Pending
Hgb Pending
Hct Pending
Plt Count Pending
Sodium Pending
Potassium Pending
Chloride Pending
Carbon Dioxide Pending
BUN Pending
Creatinine Pending
Glucose Pending
Calcium Pending
Total Bilirubin Pending
AST Pending
ALT Pending
Alkaline Phosphatase Pending
Vital Signs:
Vital Signs
Temp Pulse Resp BP Pulse Ox
97.8 F 83 18 136/68 96
05/20/24 03:11 05/20/24 03:11 05/20/24 03:11 05/20/24 03:11 05/20/24 03:11
I&O
05/19/24 05/20/24 05/21/24
06:59 06:59 06:59
Intake Total 480 / 480 600 / 600
Balance 480 / 480 600 / 600
Review of Systems
-
History Source: Patient and Family
Constitutional: Denies Fever, Fatigue or Night Sweats
Cardiac: Denies Chest Pain
Abdomen/GI: Denies Abdominal Pain
Genitourinary: Denies Dysuria or Incontinence
Musculoskeletal: Denies Joint Pain
Skin: Denies Itching
Hematologic / Lymphatic: Denies Bleeding
Physical Exam
-
General: Well Developed, Well Nourished and No Apparent Distress
HEENT: Normocephalic and Atraumatic
Respiratory: Clear to Auscultation
Cardiac: Regular Rhythm
GI: Soft and Nontender
Skin: Warm and Dry
Neuro: Awake, Alert, Oriented, No Motor Deficits and No Sensory Deficits
Psych: Calm
Data Reviewed
-
MRI: Report Reviewed by me, Discussed with Physician and Discussed with Patient
Labs: Labs Reviewed by me, Discussed with Physician and Discussed with Patient
[2024-05-20 08:48] LABS: % Basophils 1.2 % (0-2); % Eosinophils 6.9 % (0-6); % Immature Granulocytes 0.2 % (0-0.5); % Lymphocytes 19.7 % (20.5-51.1); Absolute Basophils 0.1 10^3/uL (0-0.2); Absolute Eosinophils 0.5 10^3/uL (0-0.7); Absolute Lymphocytes 1.3 10^3/uL (1.2-3.4); Absolute Monocytes 0.5 10^3/uL (0.1-0.6); Absolute Neutrophils 4.3 10^3/uL (1.4-6.5); Hematocrit 45.6 % (37.0-47.0); Hemoglobin 15.6 g/dL (12.0-16.0); Mean Corp Hgb Conc. 34.2 g/dL (33.0-37.0); Mean Corpuscular Hgb 29.2 pg (27.0-31.0); Mean Corpuscular Volume 85.2 fL (81.0-99.0); Mean Platelet Volume 9.8 fL (7.4-10.4); Nucleated Red Blood Cells % 0 %; Platelet Count 235 10^3/uL (130-400); Red Blood Cell Count 5.35 10^6/uL (4.20-5.40); Red Cell Dist. Width 13.2 % (11.5-14.5); White Blood Cell Count 6.5 10^3/uL (4.8-10.8)
[2024-05-20 09:32] LABS: ALT (SGPT) 50 U/L (0-35); AST (SGOT) 57 U/L (14-36); Alkaline Phosphatase 133 U/L (38-126); Blood Urea Nitrogen 18 mg/dl (7-17); Calcium 9.3 mg/dl (8.4-10.2); Carbon Dioxide 23 mmol/L (22-30); Chloride 103 mmol/L (98-107); Estimated Creatinine Clearance 52 ml/min; Glucose 137 mg/dl (70-99); Potassium 4.5 mmol/L (3.5-5.1); Sodium 135 mmol/L (135-145); Total Bilirubin 0.6 mg/dl (0.2-1.3); Total Protein 6.9 g/dl (6.3-8.2); eGFR > 60.00
[2024-05-20] MEDS: ASPIR LOW (ENTERIC COATED) 81 MG PO (10:16)
[2024-05-20] MEDS: PEPCID 20 MG PO ×2 (10:17→20:22)
[2024-05-20] MEDS: CYANOCOBALAMIN 1000 MCG IM (10:17)
[2024-05-20] MEDS: THIAMINE INJECTION 200 MG IV ×2 (10:17→20:21)
[2024-05-20] MEDS: FOLVITE 1 MG PO (10:18)
[2024-05-20 10:41] LABS: Glycohemoglobin (HgbA1c) 7.8 % (4.0-5.6)
--- NOTE | 2024-05-20 14:56 | W.PN.NEURO.1 ---
Addendum entered and electronically signed by Nisha Gonsalez DO 05/20/24 20:06:
Echo showed no cardiac source for stroke.
Original Note:
Today's Communication / Plan
-
-Continue aspirin 81 mg daily for now
-Acceptable for restarting Apixaban 5 days after her initial stroke symptoms (05/21)
-TTE
-outpatient ophtho eval
-OP cardiac monitoring
No driving
Neuro Assessment/Plan
Assessment
78-year-old woman with a past medical history of DVT/PE, hypertension and obesity presented to hospital with acute change in mental status since approximately 05/16, her family characterizes this change as having some difficulty with operating common
objects like a television remote and also having some confused speech and short-term memory difficulties. This seemed to be an abrupt and sudden change significantly different from the mild short-term memory loss they have observed the patient for
the past couple of years.
Patient has had history of DVT/PE and is on Eliquis 5 mg twice daily.
Imaging:
Carotid ultrasound with no significant stenosis less than 50% bilaterally based on velocity criteria
Brain MRI shows acute infarcts in both the left MCA as well as left HAMMER FITTER territories.
MRA of the head shows occlusion of the distal left M1 segment of the MCA artery, also evidence of intracranial atherosclerosis with right MCA artery intracranial stenosis, left clinoid segment carotid stenosis, left HAMMER FITTER intracranial stenosis as well
3 mm saccular aneurysm on the right ICA cavernous segment. No type circulation of the left HAMMER FITTER.
Assessments:
1) Acute ischemic stroke in both the left MCA and HAMMER FITTER territory simultaneously. This could have occurred from a proximal embolic source such as cardiac or aortic sources. A different but a little less likely cause of stroke would be simultaneous
strokes from intracranial atherosclerosis and different arterial circulations, does have significant intracranial atherosclerotic disease on MRA of the head. Hypertension is main risk factor for stroke
2) Intracranial atherosclerotic disease noted on MRA of the head.
3) Left MCA occlusion should not be pursued for thrombectomy given already established infarcts on MRI brain, NIH of 1-2, and more than 48 hours since onset of stroke symptoms
4) History of DVT/PE on Eliquis
5) Hyperlipidemia
6) By history has had mild short term memory difficulties with no functional impairment from this, may be benign or mild cognitive impairment possibly from vascular causes
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
Plan
Recommendations
-Continue aspirin 81 mg daily for now
-Acceptable for restarting Apixaban 5 days after her initial stroke symptoms (05/21)
-I do feel that the risks of combined therapy of aspirin and Apixaban would be warranted since she has significant intracranial atherosclerotic disease
-Atorvastatin 40 mg daily
-Goal normotension, avoid aggressive normalization of BP with the left MCA occlusion
-NIH and neurologic checks
-Should not drive with the right inferior quadrantopia, reporting to [facility]; discussed with patient that she should not drive and she is in agreement
-Speech, PT/OT
-Check TTE
-Would recommend cardiac monitoring as outpatient, okay to start with short term monitoring of 1-2 weeks, if no atrial fibrillation found would benefit from LINQ device
-Can check a repeated MRA head in 1-2 years to assess any change in the right carotid cavernous aneurysm but this has sufficiently low risk of rupture I don't feel warrants opinion on intervention
-reviewed s/s of stroke and importance of calling 911 should these recur.
Neurology is signing off. Please call with further questions. Needs f/u in our clinic in 2-3 mos. Please call with further questions.
Subjective/Objective
Subjective Data
Date of Service: May 20, 2024
memory improving per patient and family at bedside
feels vision and speech are also improving
Objective Data
Vital Signs
Temp Pulse Resp BP Pulse Ox
98.2 F 84 19 127/91 95
05/20/24 11:24 05/20/24 11:24 05/20/24 11:24 05/20/24 11:24 05/20/24 11:24
Lab Results
05/20/24 08:09
05/20/24 08:09
PT Cancelled 05/18/24 16:14
INR Cancelled 05/18/24 16:14
APTT Cancelled 05/18/24 16:14
Sodium 135 mmol/L (135-145) 05/20/24 08:09
Potassium 4.5 mmol/L (3.5-5.1) 05/20/24 08:09
BUN 18 mg/dl (7-17) H 05/20/24 08:09
Glucose 137 mg/dl (70-99) H 05/20/24 08:09
Calcium 9.3 mg/dl (8.4-10.2) 05/20/24 08:09
Phosphorus Cancelled 05/18/24 16:14
Bag-S-Axfbrsnvarj Pept Cancelled 05/18/24 10:36
LDL Cholesterol, Calc 118 mg/dl 05/19/24 08:12
Vitamin B12 170 pg/ml (239-931) L 05/19/24 08:12
Ur Buprenorphine Negative (Negative) 05/19/24 12:47
Patient Allergies
Iodinated Contrast Media [IV Dye, Iodine Containing Contrast ] Allergy (Verified 05/18/24 10:00)
Hives
Physical Exam
-
The patient is awake, alert and oriented x 3. She is able to follow commands and answer questions appropriately. 2/5 on backwards spelling but otherwise able to read phrases, sentences. There is no aphasia or dysarthria. On cranial nerve assessment,
pupils are 3 mm bilateral, round and reactive to light and accommodation. Visual jalloh are absent in the RLQ in L eye only today--an improvement. Extraocular movements are intact. Facial sensations are intact and bilaterally symmetrical, there is
no facial asymmetry. Hearing is intact bilaterally to normal conversation volume. Tongue palate and uvula are midline. Sternocleidomastoid strengths are full bilaterally. Motor strengths are 5/5 bilateral upper and lower extremities on medical
research Kane scale. There is no drift or involuntary movement noted. Deep tendon reflexes are 1+ bilateral upper and lower extremities and Babinski is absent bilaterally. Sensations of touch, temperature are intact and bilaterally symmetrical.
There was no extinction noted on double simultaneous stimulation. Coordination is intact by finger to nose bilaterally.
[2024-05-20] MEDS: LOVENOX 40 MG SC (18:23)
[2024-05-20] MEDS: LIPITOR 40 MG PO (18:23)
[2024-05-20] MEDS: ROCEPHIN 1000 MG IV (18:24)
[2024-05-20] MEDS: STERILE WATER FOR INJECTION 10 ML IV (18:24)
[2024-05-21 03:15] VITALS: BP 141/90
[2024-05-21 07:00] VITALS: BP 147/90
--- NOTE | 2024-05-21 07:08 | W.PN.HOSP.TC ---
Addendum entered and electronically signed by Jose Alberto Pillai MD 05/21/24 17:22:
personally performed a history and physical exam of the patient and discussed management with the resident. I reviewed the resident's note and agree with the documented findings and plan of care HPI/CC except change in documentation.
CVS: S1-S2 normal
Chest: CTA B/L
Abdomen: Soft, NT / Bowel sounds present
Extremities: No edema, normal pulses
PHYSICS FACULTY MEMBER: Non focal exam today
# Acute and ischemic infarct in the left cerebral hemisphere, parietal and occipital lobes
Possibly atheroembolic
Intracranial atherosclerosis noted on MRA
Continue aspirin, statin
Restarted Eliquis on 05/21/2024 along with aspirin
Echo and carotid ultrasound noted. Mild
PT OT and speech eval
Patient should not be driving
Outpatient case monitor for 2 weeks and if no A-fib then Linq
# New diagnosis of diabetes with hemoglobin A1c 7.8. Nursing to teach patient and son how to do Accu-Cheks. Also visiting nurses are arranged. Will start metformin 500 twice daily. Hemoglobin A1c repeat in 3 months
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 MRA as OP
# B12 deficiency-needs replacement. 1000 mcg IM daily for now. Then weekly with PCP . (Resident to call and arrange with PCP office tomorrow)
# Abnormal urine culture will do 3 days of ceftriaxone to treat cystitis
# Hypertension-amlodipine/benazepril
# History of PE and DVT -Eliquis
DVT/PE was in 2020. Only 1 instance
Unclear why she is still on anticoagulation. Family states that she has not seen a leather etcher or transit clerk PCP keeps around anticoagulation.
# History of nephrolithiasis
# Elevated LFTs-likely secondary to alcohol use. Discussed with patient's family that she needs to stop alcohol and repeat LFTs as OP. Ultrasound noted and discussed with the family regarding fatty liver.
# Peptic ulcer disease-does not seem to be on any medicines. Add Pepcid with Anticoagulant and antiplatelet and alcohol
# Diverticulosis
# Osteoarthritis
# Alcohol use-2 drinks of vodka every other day per son. Discussed that she needs to stop it.MSAS protocol and also thiamine supplementation
# DVT prophylaxis-Lovenox
# CODE STATUS- DNR per D/W Pt and daughter
D/W family
D/W Neurology
D/W RN
Resident will update 's office tomorrow re B 12 injections.
Discharge coordination time 45 min
Original Note:
Today's Communication/Plan
-
d/c home with VN
Assessment / Plan
Assessment / Plan
# Acute and ischemic infarct in the left cerebral hemisphere, parietal and occipital lobes
- Likely reason of acute mental status change- improving
- Permissive hypertension
- continue Statin
- Restart Eliquis along with aspirin per neurology
- Urinalysis not consistent with a UTI
- Carotid USG: B/L : A mix of calcified and soft plaque is identified in the proximal internal carotid artery. Carotid velocity profile is consistent with less than 50% stenosis. Vertebral artery flow is antegrade
- Should not drive with the right inferior quadrantopia
- Atorvastatin 40 mg daily
- pt/ot recs home PT
CT Head 05/18/24: Subacute left RUBBER GOODS TESTER territory nonhemorrhagic infarct. No midline shift or mass effect.
# Possible decline in cognitive function over the past 3 years
-Cognitive evaluation as outpatient discussed with patient's son and daughter
# Cystitis
- UC + for E. Coli
- Iv ceftriaxone 01/01
# Diabetes
- HbA1C 7.8
- diabetic diet
- start metformin 500mg bid
# B12 deficiency-needs replacement.
- 1000 mcg IM daily for now. Then weekly with PCP .
# Hypertension
Permissive hypertension
- Echo: Normal biventricular size and systolic function without regional wall motion
abnormality. Estimated LVEF 60-65%.
- Not to stop Eliquis until eval by cardio OP
# History of PE and DVT -Eliquis resumed per neuro recs
- DVT/PE was in 2020. Only 1 instance
- Unclear why she is still on anticoagulation.
# History of nephrolithiasis
# Peptic ulcer disease-does not seem to be on any medicines
# Diverticulosis
# Osteoarthritis
# Alcohol use-2 drinks of vodka every other day per son. Discussed that she needs to stop it
- MSAS protocol and also thiamine supplementation
# DVT prophylaxis-Lovenox d/c since patient on eliquis now
# CODE STATUS- DNR per D/W Pt and daughte
Anticipated Discharge: Today
Subjective/Interval History
-
Date of Service: May 21, 2024
Objective Data
-
Labs:
Laboratory Results
05/21/24
06:00
WBC Pending
Hgb Pending
Hct Pending
Plt Count Pending
Sodium Pending
Potassium Pending
Chloride Pending
Carbon Dioxide Pending
BUN Pending
Creatinine Pending
Glucose Pending
Calcium Pending
Total Bilirubin Pending
AST Pending
ALT Pending
Alkaline Phosphatase Pending
Vital Signs:
Vital Signs
Temp Pulse Resp BP Pulse Ox
97.9 F 81 20 141/90 95
05/21/24 03:15 05/21/24 03:15 05/21/24 03:15 05/21/24 03:15 05/21/24 03:15
I&O
05/20/24 05/21/24 05/22/24
06:59 06:59 06:59
Intake Total 600 / 600 1200 / 1200
Balance 600 / 600 1200 / 1200
Review of Systems
-
History Source: Patient
Constitutional: Denies Fever
Respiratory: Denies Cough
Cardiac: Denies Chest Pain
Abdomen/GI: Denies Abdominal Pain
Musculoskeletal: Denies Joint Pain
Neuro: Denies Dizzy or Headache
Hematologic / Lymphatic: Denies Bleeding
Physical Exam
-
General: Well Developed and Well Nourished
HEENT: Normocephalic and Atraumatic
Respiratory: Clear to Auscultation
Cardiac: Regular Rhythm
GI: Soft and Nontender
Skin: Warm and Dry
Neuro: Awake, Alert and Oriented
Psych: Calm
Data Reviewed
-
Labs: Labs Reviewed by me, Discussed with Physician and Discussed with Patient
[2024-05-21] MEDS: PEPCID 20 MG PO (07:54)
[2024-05-21] MEDS: LOTREL 10 MG/20 MG 1 CAPSULE PO (07:54)
[2024-05-21] MEDS: ELIQUIS 5 MG PO (07:54)
[2024-05-21] MEDS: FOLVITE 1 MG PO (07:55)
[2024-05-21] MEDS: ASPIR LOW (ENTERIC COATED) 81 MG PO (07:55)
[2024-05-21] MEDS: THIAMINE INJECTION 200 MG IV (07:55)
[2024-05-21] MEDS: CYANOCOBALAMIN 1000 MCG IM (07:56)
[2024-05-21 07:59] VITALS: BP 147/90
[2024-05-21 08:48] LABS: Hematocrit 45.2 % (37.0-47.0); Hemoglobin 15.2 g/dL (12.0-16.0); Mean Corp Hgb Conc. 33.6 g/dL (33.0-37.0); Mean Corpuscular Hgb 28.5 pg (27.0-31.0); Mean Corpuscular Volume 84.6 fL (81.0-99.0); Mean Platelet Volume 9.3 fL (7.4-10.4); Platelet Count 225 10^3/uL (130-400); Red Blood Cell Count 5.34 10^6/uL (4.20-5.40); Red Cell Dist. Width 13.2 % (11.5-14.5); White Blood Cell Count 7.2 10^3/uL (4.8-10.8)
--- NOTE | 2024-05-21 08:49 | W.DCSUMMARY ---
Documented by User: Seth Gonzalez MD, Resident 05/21/24 17:37
Discharge Summary
Discharge Data
Date of Admission: 05/18/24
Date of Discharge: 05/21/24
-
Pending Results: No
Hospital Course
Discharging Physician : Seth Gonzalez MD ; Jose Alberto Pillai MD
Disposition : Home with VN
Primary care physician : Luciano Price
Principal Discharge diagnosis : Acute and ischemic infarct in the left cerebral hemisphere, parietal and occipital lobes
Chronic Discharge diagnosis : Tension, history of DVT/PE, nephrolithiasis, peptic ulcer disease, diverticulosis, osteoarthritis, alcohol use, B12 deficiency
Hospital Course : 78-year-old female presented to the emergency room with altered mental status, denies headache or recent trauma. She reportedly informed that she was prescribed Eliquis for history of PE however she was somewhat knocked compliant.
She was admitted to telemetry and differentials included stroke versus other causes like infection. MRI of the brain was done which showed acute and ischemic infarct in the left cerebellar hemisphere, parietal and occipital lobe. Neurology was on
board during her stay at the hospital. She was also observed on MSAS protocol and she received thiamine supplementation. Echo and carotid ultrasound were also ordered for further evaluation. Blood work showed vitamin B12 deficiency and she was
started on 1000 mcg intramuscular injection every day. She was informed to continue receiving weekly intramuscular injection for at least 2 months before getting it checked again and follow PCP instructions accordingly. She received 3 days of IV
ceftriaxone as her urine culture was positive for E. coli.. Neurology also recommended to get outpatient cardiac exercise physiologist for 2 weeks and if there is no A-fib she can have Linq. Initially she was started on aspirin 81 mg daily and on Eliquis 5 days
after the stroke which happened to be her discharge today 05/21/2024. It was recommended that she should not drive with right inferior quadrantanopia and she was evaluated by PT/OT who recommended acute rehab initially that her symptoms improved
significantly over night and upon further evaluation it was recommended to have home PT before outpatient PT. Echo showed no cardiac source of stroke and she was cleared for discharge. She was advised to get ophthalmology evaluation. It was found
on blood work that her HbA1c was 7.8 and she was advised to eat diabetic diet and she was started on metformin 500 mg twice daily. She was advised strictly do not stop Eliquis until at least getting evaluation with cardiology.
Important imaging findings :
CT Head W/o Iv Contrast
FINDINGS:
There is a nonhemorrhagic infarct involving the left DOOR TO DOOR SELLING AGENT territory which is likely subacute at this time. No evidence of hemorrhagic conversion. There is some ex vacuo dilatation of the left lateral ventricle. No midline shift or mass effect. There
is global parenchymal volume loss commensurate with the patient's age. Periventricular and subcortical white matter hypoattenuation is present which is nonspecific, however likely related to cerebral small vessel disease. The ventricles and sulci
are normal in size and configuration.
The calvarium is unremarkable. The orbits are unremarkable. The paranasal sinuses and mastoid air cells are clear.
IMPRESSION:
Subacute left DOOR TO DOOR SELLING AGENT territory nonhemorrhagic infarct. No midline shift or mass effect.
MR Brain Without Contrast
FINDINGS:
There are multiple acute ischemic infarcts in the left cerebral hemisphere, the largest in the posterior left parietal-occipital lobe junction measuring 2.3 x 4.9 x 1.8 cm in AP, transverse, and craniocaudal dimensions demonstrating restricted
diffusion and containing cytotoxic edema which effaces the associated sulci. There is a 6 mm acute ischemic infarct in the left parietal lobe pollard radiata and a 1.4 x 0.7 cm acute ischemic infarct in the left frontal lobe pollard radiata. There is
a 1.6 x 0.7 cm acute ischemic infarct in the left frontal lobe centrum semiovale bilaterally. There is a 1.4 x 2.5 cm acute ischemic infarct in the cortical dave matter and subcortical white matter of the lateral left frontal lobe containing
cytotoxic edema. There are tiny acute cortical dave matter infarcts in the superior left frontal lobe measuring 6.8 mm and 5.3 mm in size.
There is a large amount of low T1 and high T2/FLAIR signal intensity white matter leukoaraiosis in the periventricular and subcortical white matter of both frontal and parietal lobes. There is a 9.1 mm chronic ischemic infarct in the superior left
cerebellar hemisphere.
The ventricles are midline without evidence for hydrocephalus. There are dilated perivascular spaces in the deep dave and white matter bilaterally. There is mild diffuse cerebral and cerebellar volume loss. There is no evidence for acute or chronic
intracranial hemorrhage. There are no extra-axial fluid collections.
The orbits appear normal. There is moderate mucosal thickening and a small amount of fluid in the posterior left sphenoid sinus. The mastoid air cells are clear. There is a mild amount of symmetric high T2 signal intensity in the subcutaneous fat
anterior to the maxilla and in the midline anterior to the frontal bones consistent with dermal filler injections.
IMPRESSION:
1. MULTIPLE ACUTE ISCHEMIC INFARCTS in the LEFT CEREBRAL HEMISPHERE involving the cortical dave matter and white matter of the left frontal, parietal, and occipital lobes measuring up to 4.8 cm in size in the posterior left parietal-occipital lobe
junction.
2. 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
3. Mild diffuse cerebral and cerebellar volume loss.
4. Moderate mucosal disease in the left sphenoid sinus.
MRA Brain/[place] of [place] without contrast
FINDINGS:
ANTERIOR CIRCULATION: Both intracranial internal carotid arteries (ICAs) appear patent and demonstrate antegrade blood flow. There is severe calcific atherosclerotic plaque in the cavernous and clinoid segments of both intracranial internal carotid
arteries causing less than 25% diameter stenosis on the right and a 50-70% diameter stenosis in the clinoid segment of the left internal carotid artery. There is a 3 mm saccular aneurysm protruding medially from the cavernous segment of the right
internal carotid artery into the cavernous sinus.
The internal carotid arteries terminate in patent bilateral anterior cerebral arteries. There is mild hypoplasia of the A1 segment of the left anterior cerebral artery. There is a small patent anterior communicating artery.
There is an acute complete occlusion of the distal M1 segment of the left middle cerebral artery measuring 6.4 mm in length. There is collateral blood flow reaching the M2 segments of the left middle cerebral artery. The distal M3 and M4 segments of
the left middle cerebral artery appear patent.
There is a 2.1 mm 50% diameter stenosis in the proximal M1 segment of the right middle cerebral artery and a 2.7 mm 70% diameter stenosis in the distal M1 segment of the right middle cerebral artery. The more distal branches of the right middle
cerebral artery are patent.
POSTERIOR CIRCULATION:
Both intracranial vertebral arteries are patent and demonstrate antegrade blood flow. The vertebral arteries form a patent basilar artery. There is luminal irregularity in the vertebral and basilar arteries consistent with atherosclerotic plaque
causing less than 25% diameter stenosis.
The basilar artery terminates in a normal-sized left posterior cerebral artery P1 segment. There is a 50-70% diameter stenosis in the P1 segment of the left posterior cerebral artery measuring 2.2 mm in length. The P1 segment of the right posterior
cerebral artery appears to be congenitally aplastic. The blood supply to the right posterior cerebral arteries through a right posterior communicating artery.
IMPRESSION:
1. ACUTE COMPLETE OCCLUSION of the distal M1 segment of the LEFT MIDDLE CEREBRAL ARTERY with collateral blood supply reaching the M2 segments of the left middle cerebral artery.
2. 70% diameter stenosis in the distal M1 segment of the right middle cerebral artery.
3. 50-70% diameter stenosis in the clinoid segment of the left ICA.
4. 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
5. 50-70% diameter stenosis in the P1 segment of the left posterior cerebral artery.
6. 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
US Cerebrovascular
RIGHT: A mix of calcified and soft plaque is identified in the proximal internal carotid artery. Carotid velocity profile is consistent with less than 50% stenosis. Vertebral artery flow is antegrade.
LEFT: A mix of calcified and soft plaque is identified in the proximal internal carotid artery. Carotid velocity profile is consistent with less than 50% stenosis. Vertebral artery flow is antegrade.
Abdominal ultrasound.
FINDINGS: The liver is normal in size, measuring 15.0 cm with a smooth capsular contour and homogeneous relative diffuse increased echogenicity. There is no focal hepatic lesion or intrahepatic biliary dilation. The gallbladder is surgically
absent.. The common duct is normal, measuring 0.5 cm. The pancreas, IVC and proximal abdominal aorta are significantly obscured, most likely by overlying bowel gas. The spleen is normal in size and shows no focal abnormality. There is a lateral left
renal cyst measuring 1.6 x 1.8 x 1.5 cm with questionable wall calcification.. The right kidney measured 10.9 cm in greatest length; the left kidney measured 10.5 cm in greatest length. No free fluid is seen in the abdomen. Normal directional blood
flow is seen in the hepatic and portal veins.
IMPRESSION: Findings suggesting diffuse hepatic steatosis.
Prior cholecystectomy. No findings to suggest biliary tract dilatation.
Small left renal cyst with questionable wall calcification.
Pancreas, IVC and proximal abdominal aorta significantly obscured, most likely by overlying bowel gas
Procedure findings : ECHO:
CONCLUSIONS
Normal left ventricular size and systolic function.
Mild concentric left ventricular hypertrophy.
Estimated ejection fraction is 65-70%.
Normal right ventricular size and function.
Aortic sclerosis without stenosis.
Trace tricuspid regurgitation.
Estimated pulmonary artery pressure of 27 mmHg assuming a right atrial pressure
of 3 mmHg.
No prior study available for comparison.
Discharge Plan
-
Patient Disposition: Home with Home Care
Discharge Diagnosis/Procedures: Stroke, Diabetes, Fatty liver, Hypertension,B 12 Defeciency, elevated LFTs, history of nephrolithiasis, peptic ulcer disease, diverticulosis, osteoporosis,
Condition: Good
Diet: 2 Gram Sodium and Diabetic, Carb Controlled
Activity: As tolerated
Driving Restrictions: No driving
Blood Work: CMP 3 weeks. B 12 level 2 months
Others Tests: MRA head in 1-2 years to assess any change in the 3 mm right carotid cavernous aneurysm
Other Services: VN
Activity Restrictions/Additional Instructions:
Follow-up with cardiology to be seen and to get a heart monitor arranged. Do not stop Eliquis prior to being evaluated by cardiology and monitor. Do not drive until cleared by ophthalmology, neurology and Occupational Therapy. You need to be seen
by an hospital security officer as outpatient. Outpatient evaluation for memory. Please follow-up with neurology. Do not miss any doses of medicines. Repeat liver function tests 1 month. Do not use any alcohol in the interim. Follow-up with GI doctor
for fatty liver. Vitamin B12 injections weekly through your PCP. Follow diabetic diet. Weight loss advised.
Instructions: High cholesterol, Carb counting for adults with diabetes, Metformin, Diabetes and diet, High Blood Sugar, Adult ED, Checking your blood sugar at home, Foot care for people with diabetes
Referrals:
[facility] [Provider Group] (The front sight attacher will call you to arrange. )
Ellis Dias MD [Active] -
Luciano Price MD [Family Provider] - in less than 1 week
Additional Discharge Medication Instructions: Take aspirin 81 mg tablet once every day
Take atorvastatin 40 mg 1 tablet at bedtime
Vitamin B12 1000 mcg/mL IM once every week
Famotidine 20 mg 1 tablet twice daily
Take metformin 500 mg 1 tablet twice a day
Take vitamin B1 100 mg tablet 1 tablet twice a day
Continue Eliquis 5 mg tablet twice a day
Prescriptions:
New
aspirin 81 mg Tablet,Delayed Release (Dr/Ec)
81 mg PO DAILY Qty: 0 0RF
cyanocobalamin (vitamin B-12) 1,000 mcg/mL Solution
1,000 mcg IM QWEEK Qty: 10 0RF
atorvastatin 40 mg Tablet
40 mg PO QPM Qty: 30 0RF
metformin 500 mg Tablet
500 mg PO BID@0800,1700 Qty: 60 1RF
thiamine HCl (vitamin B1) 100 mg Tablet
100 mg PO BID Qty: 30 0RF
famotidine 20 mg Tablet
20 mg PO BID Qty: 60 1RF
(DME) blood-glucose meter [Accu-Chek Guide Glucose Meter] Misc
Qty: 1 0RF
Rx Instructions:
As Directed
(DME) Accu-Chek Guide test strips Strip
Qty: 200 0RF
Rx Instructions:
As Directed
(DME) Accu-Chek Guide test strips Strip
Qty: 100 0RF
Rx Instructions:
As Directed
Continued
amlodipine-benazepril 10-20 mg capsule
1 cap PO DAILY
Eliquis 5 MG tablet
5 mg PO BID
Discharge Orders:
Discharge Patient (As Directed); Ordered 05/21/24
Ordered By: Seth Gonzalez
Discharge Date and Time
Discharge Date/Time: 05/21/24 17:55
Print Language: ANDORRAN

Documented by User: Jose Alberto Pillai MD 05/22/24 09:30
Discharge Summary
Discharge Data
Date of Admission: 05/18/24
Date of Discharge: 05/22/24
Hospital Course
Discharging Physician : Seth Gonzalez MD ; Jose Alberto Pillai MD
Disposition : Home with VN
Primary care physician : Luciano Price
Principal Discharge diagnosis : Acute and ischemic infarct in the left cerebral hemisphere, parietal and occipital lobes
Chronic Discharge diagnosis : Tension, history of DVT/PE, nephrolithiasis, peptic ulcer disease, diverticulosis, osteoarthritis, alcohol use, B12 deficiency
Hospital Course : 78-year-old female presented to the emergency room with altered mental status, denies headache or recent trauma. She reportedly informed that she was prescribed Eliquis for history of PE however she was somewhat knocked compliant.
She was admitted to telemetry and differentials included stroke versus other causes like infection. MRI of the brain was done which showed acute and ischemic infarct in the left cerebellar hemisphere, parietal and occipital lobe. Neurology was on
board during her stay at the hospital. She was also observed on MSAS protocol and she received thiamine supplementation. Echo and carotid ultrasound were also ordered for further evaluation. Blood work showed vitamin B12 deficiency and she was
started on 1000 mcg intramuscular injection every day. She was informed to continue receiving weekly intramuscular injection for at least 2 months before getting it checked again and follow PCP instructions accordingly. She received 3 days of IV
ceftriaxone as her urine culture was positive for E. coli.. Neurology also recommended to get outpatient cardiac exercise physiologist for 2 weeks and if there is no A-fib she can have Linq. Initially she was started on aspirin 81 mg daily and on Eliquis 5 days
after the stroke which happened to be her discharge today 05/21/2024. It was recommended that she should not drive with right inferior quadrantanopia and she was evaluated by PT/OT who recommended acute rehab initially that her symptoms improved
significantly over night and upon further evaluation it was recommended to have home PT before outpatient PT. Echo showed no cardiac source of stroke and she was cleared for discharge. She was advised to get ophthalmology evaluation. It was found
on blood work that her HbA1c was 7.8 and she was advised to follow diabetic diet and she was started on metformin 500 mg twice daily. She was advised not stop Eliquis until at least getting evaluation by cardiology.
Important imaging findings :
CT Head W/o Iv Contrast
FINDINGS:
There is a nonhemorrhagic infarct involving the left DOOR TO DOOR SELLING AGENT territory which is likely subacute at this time. No evidence of hemorrhagic conversion. There is some ex vacuo dilatation of the left lateral ventricle. No midline shift or mass effect. There
is global parenchymal volume loss commensurate with the patient's age. Periventricular and subcortical white matter hypoattenuation is present which is nonspecific, however likely related to cerebral small vessel disease. The ventricles and sulci
are normal in size and configuration.
The calvarium is unremarkable. The orbits are unremarkable. The paranasal sinuses and mastoid air cells are clear.
IMPRESSION:
Subacute left DOOR TO DOOR SELLING AGENT territory nonhemorrhagic infarct. No midline shift or mass effect.
MR Brain Without Contrast
FINDINGS:
There are multiple acute ischemic infarcts in the left cerebral hemisphere, the largest in the posterior left parietal-occipital lobe junction measuring 2.3 x 4.9 x 1.8 cm in AP, transverse, and craniocaudal dimensions demonstrating restricted
diffusion and containing cytotoxic edema which effaces the associated sulci. There is a 6 mm acute ischemic infarct in the left parietal lobe pollard radiata and a 1.4 x 0.7 cm acute ischemic infarct in the left frontal lobe pollard radiata. There is
a 1.6 x 0.7 cm acute ischemic infarct in the left frontal lobe centrum semiovale bilaterally. There is a 1.4 x 2.5 cm acute ischemic infarct in the cortical dave matter and subcortical white matter of the lateral left frontal lobe containing
cytotoxic edema. There are tiny acute cortical dave matter infarcts in the superior left frontal lobe measuring 6.8 mm and 5.3 mm in size.
There is a large amount of low T1 and high T2/FLAIR signal intensity white matter leukoaraiosis in the periventricular and subcortical white matter of both frontal and parietal lobes. There is a 9.1 mm chronic ischemic infarct in the superior left
cerebellar hemisphere.
The ventricles are midline without evidence for hydrocephalus. There are dilated perivascular spaces in the deep dave and white matter bilaterally. There is mild diffuse cerebral and cerebellar volume loss. There is no evidence for acute or chronic
intracranial hemorrhage. There are no extra-axial fluid collections.
The orbits appear normal. There is moderate mucosal thickening and a small amount of fluid in the posterior left sphenoid sinus. The mastoid air cells are clear. There is a mild amount of symmetric high T2 signal intensity in the subcutaneous fat
anterior to the maxilla and in the midline anterior to the frontal bones consistent with dermal filler injections.
IMPRESSION:
1. MULTIPLE ACUTE ISCHEMIC INFARCTS in the LEFT CEREBRAL HEMISPHERE involving the cortical dave matter and white matter of the left frontal, parietal, and occipital lobes measuring up to 4.8 cm in size in the posterior left parietal-occipital lobe
junction.
2. 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
3. Mild diffuse cerebral and cerebellar volume loss.
4. Moderate mucosal disease in the left sphenoid sinus.
MRA Brain/[place] without contrast
FINDINGS:
ANTERIOR CIRCULATION: Both intracranial internal carotid arteries (ICAs) appear patent and demonstrate antegrade blood flow. There is severe calcific atherosclerotic plaque in the cavernous and clinoid segments of both intracranial internal carotid
arteries causing less than 25% diameter stenosis on the right and a 50-70% diameter stenosis in the clinoid segment of the left internal carotid artery. There is a 3 mm saccular aneurysm protruding medially from the cavernous segment of the right
internal carotid artery into the cavernous sinus.
The internal carotid arteries terminate in patent bilateral anterior cerebral arteries. There is mild hypoplasia of the A1 segment of the left anterior cerebral artery. There is a small patent anterior communicating artery.
There is an acute complete occlusion of the distal M1 segment of the left middle cerebral artery measuring 6.4 mm in length. There is collateral blood flow reaching the M2 segments of the left middle cerebral artery. The distal M3 and M4 segments of
the left middle cerebral artery appear patent.
There is a 2.1 mm 50% diameter stenosis in the proximal M1 segment of the right middle cerebral artery and a 2.7 mm 70% diameter stenosis in the distal M1 segment of the right middle cerebral artery. The more distal branches of the right middle
cerebral artery are patent.
POSTERIOR CIRCULATION:
Both intracranial vertebral arteries are patent and demonstrate antegrade blood flow. The vertebral arteries form a patent basilar artery. There is luminal irregularity in the vertebral and basilar arteries consistent with atherosclerotic plaque
causing less than 25% diameter stenosis.
The basilar artery terminates in a normal-sized left posterior cerebral artery P1 segment. There is a 50-70% diameter stenosis in the P1 segment of the left posterior cerebral artery measuring 2.2 mm in length. The P1 segment of the right posterior
cerebral artery appears to be congenitally aplastic. The blood supply to the right posterior cerebral arteries through a right posterior communicating artery.
IMPRESSION:
1. ACUTE COMPLETE OCCLUSION of the distal M1 segment of the LEFT MIDDLE CEREBRAL ARTERY with collateral blood supply reaching the M2 segments of the left middle cerebral artery.
2. 70% diameter stenosis in the distal M1 segment of the right middle cerebral artery.
3. 50-70% diameter stenosis in the clinoid segment of the left ICA.
4. 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
5. 50-70% diameter stenosis in the P1 segment of the left posterior cerebral artery.
6. 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
US Cerebrovascular
RIGHT: A mix of calcified and soft plaque is identified in the proximal internal carotid artery. Carotid velocity profile is consistent with less than 50% stenosis. Vertebral artery flow is antegrade.
LEFT: A mix of calcified and soft plaque is identified in the proximal internal carotid artery. Carotid velocity profile is consistent with less than 50% stenosis. Vertebral artery flow is antegrade.
Abdominal ultrasound.
FINDINGS: The liver is normal in size, measuring 15.0 cm with a smooth capsular contour and homogeneous relative diffuse increased echogenicity. There is no focal hepatic lesion or intrahepatic biliary dilation. The gallbladder is surgically
absent.. The common duct is normal, measuring 0.5 cm. The pancreas, IVC and proximal abdominal aorta are significantly obscured, most likely by overlying bowel gas. The spleen is normal in size and shows no focal abnormality. There is a lateral left
renal cyst measuring 1.6 x 1.8 x 1.5 cm with questionable wall calcification.. The right kidney measured 10.9 cm in greatest length; the left kidney measured 10.5 cm in greatest length. No free fluid is seen in the abdomen. Normal directional blood
flow is seen in the hepatic and portal veins.
[2024-05-21 09:18] LABS: ALT (SGPT) 56 U/L (0-35); AST (SGOT) 79 U/L (14-36); Alkaline Phosphatase 130 U/L (38-126); Blood Urea Nitrogen 15 mg/dl (7-17); Calcium 9.4 mg/dl (8.4-10.2); Carbon Dioxide 28 mmol/L (22-30); Chloride 102 mmol/L (98-107); Estimated Creatinine Clearance 52 ml/min; Glucose 148 mg/dl (70-99); Potassium 4.5 mmol/L (3.5-5.1); Sodium 135 mmol/L (135-145); Total Bilirubin 0.7 mg/dl (0.2-1.3); eGFR > 60.00
[2024-05-21 11:12] VITALS: BP 104/75
[2024-05-21 15:00] VITALS: BP 152/77
--- NOTE | 2024-05-21 15:22 | CM ---
Plan is home today today with visiting nurses patient has selected [facility].
Plan Home with [facility] .
--- NOTE | 2024-05-21 15:45 | PTOTSP ---
Speech Therapy
Complaints: Patient was seen in bed with her family at her bedside. Patient stated that she intermittently has trouble with word-finding and 'getting the words out'. To assess, TRIAGE CLINICIAN utilized portions of the Quick Aphasia Bettery (QAB) and Chrisney
Cognitive Assessment- Basic (MOCA-B). Scores are as follows:
QAB:
Level of consciousness: 32/32
Sentence Comprehension:42/48
Repetition:
Reading Aloud:
MOCA-B:
Visuoperception: 12/04
Namin/4
Confrontational functional object naming task: 06/10
Oriented to self, location, year, location, home address, and date of . Patient not oriented to phone number which she apparently changed recently.
In sum, given the above information and test scores, patient appears to be demonstrating some mild expressive aphasia and cognitive deficits evidenced by the difficulty with sentence comprehension, repetition, reading, visuoperception, and naming.
Patient's vision (noted right sided neglect starting at midline) may be a barrier to some of the scores.
Given the above, recommend continuation of speech services. Noted discharge home 05/21, speech services via outpatient or homecare would likely be beneficial.
Recommendations:
1) Continuation of regular texture diet, thin liquids
2) Medications whole with thin liquid, one at a time
3) Aspiration precautions
4) speech, language, and cognitive therapy
Plan: TRIAGE CLINICIAN will continue to follow; pending hospitalization.
--- NOTE | 2024-05-21 15:58 | PTOTSP ---
Speech therapy
Complaints: Patient was seen in bed with her family at her bedside. Patient stated that she intermittently has trouble with word-finding and 'getting the words out'.
To assess, HUMAN RESOURCES VICE PRESIDENT utilized portions of the Quick Aphasia Battery (QAB) and Boris Cognitive Assessment- Basic (MOCA-B). Scores are as follows:
QAB:
Level of consciousness: 32/32
Sentence Comprehension:42/48
Repetition:
Reading Aloud:
MOCA-B:
Visuoperception: 12/04
Namin/4
Confrontational functional object naming task: 06/10
Oriented to self, location, year, location, home address, and date of . Patient not oriented to phone number which she apparently changed recently.
In sum, given the above information and test scores, patient appears to be demonstrating some mild expressive aphasia and cognitive deficits evidenced by the difficulty with sentence comprehension, repetition, reading, visuoperception, and naming.
Patient's vision (noted right sided neglect starting at midline) may be a barrier to some of the scores.
Given the above, recommend continuation of speech services. Noted discharge home 05/21, speech services via outpatient or homecare would likely be beneficial.
Recommendations:
1) Continuation of regular texture diet, thin liquids
2) Medications whole with thin liquid, one at a time
3) Aspiration precautions: Upright positioning; Small single sips/bites; Slow rate of intake; Supervision with meals to ensure use of strategies; Monitor CXR and labs to assess for signs/symptoms of aspiration
4) speech, language, and cognitive therapy
Plan: HUMAN RESOURCES VICE PRESIDENT will continue to follow; pending hospitalization.
[2024-05-21] MEDS: GLUCOPHAGE 500 MG PO (17:06)
[2024-05-21] MEDS: LIPITOR 40 MG PO (17:07)
== END 2024-05-21 17:55 | disposition home health service (06) | DRG 68 ==
LOC: 4 WEST ACU 14:44
PROVIDERS: Physician Assistant; Student in an Organized Health Care Education/Training Program; ADMITTING PHYSICIAN Hospitalist; CONSULT PHYSICIAN Student in an Organized Health Care Education/Training Program; EMERGENCY PHYSICIAN Student in an Organized Health Care Education/Training Program; FAMILY PHYSICIAN Family Medicine
DX: I66.02 Occlusion and stenosis of left middle cerebral artery (principal); Z66 Do not resuscitate; Z87.891 Personal history of nicotine dependence; E78.5 Hyperlipidemia, unspecified; R29.701 NIHSS score 1; I67.2 Cerebral atherosclerosis; I67.1 Cerebral aneurysm, nonruptured; Z87.442 Personal history of urinary calculi; Z87.11 Personal history of peptic ulcer disease; K27.9 Peptic ulcer, site unspecified, unspecified as acute or chronic, without hemorrhage or perforation; K57.30 Diverticulosis of large intestine without perforation or abscess without bleeding; M19.90 Unspecified osteoarthritis, unspecified site; E53.8 Deficiency of other specified B group vitamins
CPT/HCPCS: 70450; 70544; 70551; 76700; 80053; 80061; 80076; 80306; 80307; 81003; 81015; 82010; 82077; 82140; 82607; 82728; 82746; 82977; 83036; 83735; 84100; 84443; 84484; 85025; 85027; 87077; 87086; 87186; 92523; 92610; 93005; 93306; 93880; 96374; 97116; 97163; 97167; 97535; 99285

== ENCOUNTER 2024-06-09 18:53 | Inpatient (IN) | payer OTHER, SELFPAY ==
[2024-06-09] VITALS (11 sets, daily range): BP systolic 101–178; BP diastolic 52–113; BMI 34.8; BMI 33.5
[2024-06-09 11:02] LABS: Glucose - Point of Care 168 mg/dl (70-99)
--- NOTE | 2024-06-09 11:09 | ED.CVA ---
Addendum entered and electronically signed by Jatinder Harris PA-C 06/09/24 18:21:
I received a call from neurologist Dr. 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 It was neurology is feeling that this patient may require MCA stenting due to the
waxing waning stroke symptoms as well as MRI showing watershed MCA area infarct. I discussed the case with interventional list Dr. Callahan who agrees that this is not a procedure that can be managed at [facility] given that there is no acute
clot and thrombectomy is not indicated. I then discussed the case with the stroke team at [facility] Dr. Garcia, who reviewed angiogram and MR images personally via cell phone videos. After lengthy discussion it was felt that this
likely represents an ongoing chronic process and thus stenting the patient with a current 0 NIH and on Eliquis would be high risk and likely not beneficial. I did also then review MRI images from May which show a similar occlusion of the left M1
segment with distal reconstitution. Pens recommendations are for keeping the patient lying flat with liberal permissive hypertension for the next 24 hours and consideration of upgrade in anticoagulant or antiplatelet therapy with our in-house
neurology team. I then discussed the case with hospitalist and neurology who will admit the patient to this hospital here for further management.
Original Note:
History of Present Illness
General
Chief Complaint: CVA/TIA Symptoms
Source: patient
Exam Limitations: none
Time Seen by Provider: 06/09/24 11:01
Nursing documentation reviewed up to this point in time: agreed with
Onset of Stroke Symptoms
Onset of symptoms known: No
Time pt last seen normal is known: No
History of Present Illness
History of Present Illness:
78-year-old female past medical history of PE currently on Eliquis, recent left PHARMACY ANALYST stroke few weeks ago presenting to the emergency department with expressive aphasia this morning with her family seemingly improving since still having some trouble
finding words at this point. Denies any numbness weakness changes in vision or trouble with coordination.
Past History
Past History
ED Past Medical History: HTN; Negative Hypercholesterolemia, IDDM, NIDDM, [place] or Renal failure
ED Past Surgical History: Cholecystectomy
Social History
Tobacco: Non-smoker
Alcohol: Occasional
Drug: None
Personal:
Living: with family
Employment: Employed
Family History
Family History: Hypertension
Review of Systems
Review of Systems
Allergies reviewed?: Yes
All Other Systems: ROS reviewed and negative except as documented in HPI and ROS
Phy Exam
Physical Exam
Physical Exam:
GENERAL: Alert , in no apparent distress
EYE: pupils equal and reactive
NECK: Supple, no significant adenopathy.
ENT: o/p clr, mmm.
CARDIAC: Regular rate and rhythm .
LUNGS: Clear breath sounds bilaterally, no acute respiratory distress, no wheezes/rales/rhonchi
ABDOMEN: Soft, without focal tenderness, no r/g, no cvat
NEUROLOGICAL: Alert unable to answer questions in regard to the current date or president., no focal neuro deficits 5-5 upper and lower extremity strength normal sensation with palpating bilaterally normal finger-nose and [id number] no pronator
drift
SKIN: Warm and dry, skin intact.
MUSCULOSKELETAL: No edema, well perfused.
PSYCH: Normal and appropriate interaction.
Course
Orders/Labs/Results
Orders:
Orders
06/09/24 11:04
CT Head W/o Cont STROKE ALERT Stat
Reason For Exam: stroke alert
06/09/24 11:05
Bedside Glucose- Treatment ONCE
Cardiac Monitoring- Treatment ONCE
06/09/24 11:06
Electrocardiogram (*1) Stat
Reason for Study: Other
Other Reason for Exam: neuro symptoms
EKG- Treatment ONCE
06/09/24 11:19
Complete Blood Count/With Diff Urgent
PTT Urgent
Prothrombin Time Urgent
06/09/24 11:44
UA Reflex to Culture [Urinalysis Reflex To Culture] Urgent
Date Specimen was Collected: 06/09/24
Time Specimen was Collected: 11:43
06/09/24 12:42
Comprehensive Metabolic Panel Urgent
Abnormal Lab Results
06/09/24 06/09/24 06/09/24
11:00 11:19 11:20
Lymphocytes % 16.3 L %
(20.5-51.1)
PT 16.2 H Sec
(11.4-14.6)
AST
ALT
POC Glucose 168 H mg/dl 135 H mg/dl
(70-99) (70-99)
06/09/24
12:42
Lymphocytes %
PT
AST 63 H U/L
(14-36)
ALT 42 H U/L
(0-35)
POC Glucose
06/09/24 11:19
06/09/24 12:42
Vital Signs
Initial and Last Documented VS:
Initial Vital Signs
Temp Pulse Resp BP Pulse Ox
98.5 F 52 16 178/61 98
06/09/24 10:54 06/09/24 10:54 06/09/24 10:54 06/09/24 10:54 06/09/24 10:54
Last Documented Vital Signs
Temp Pulse Resp BP Pulse Ox
98.5 F 91 17 101/59 95
06/09/24 10:54 06/09/24 12:45 06/09/24 12:45 06/09/24 12:01 06/09/24 12:45
MDM/Problems Addressed
MDM/Problems Addressed:
78-year-old female presenting to the emergency department today with concerns of expressive aphasia this morning upon. Did have similar symptoms with a stroke from a few weeks ago. Found have a left sided PHARMACY ANALYST stroke. Here initial stroke alert was
ordered patient was sent for CT scan patient seen by neurology the first few minutes of ER visit. Neuro recommending admission overnight for monitoring. Otherwise stable throughout ER stay.
*Critical Care Note
Total Time (30-74mins, 75-104mins- exclusive of procedures): Not Applicable
ED Attending Note
-
Portions of this chart may have been created with voice recognition software.� Occasional wrong word or��sound alike� substitutions may have occurred due to the inherent limitations of voice recognition software.
Discharge Plan
Departure
Patient Disposition: Admit
Date of Disposition: 06/09/24
Time of Disposition: 13:34
Admit to: Telemetry
Admit to doctor: Foster
Presentation/result/management discussed w/ accepting MD/DO: Hospitalist
Patient with high blood pressure during this ER visit?: No
Condition: Good
Covid-19: Not Applicable
Discharge Problem:
Expressive aphasia
Prescriptions:
No Action
amlodipine-benazepril 10-20 mg capsule
1 cap PO DAILY
Eliquis 5 MG tablet
5 mg PO BID
aspirin 81 mg Tablet,Delayed Release (Dr/Ec)
81 mg PO DAILY Qty: 0 0RF
famotidine 20 mg Tablet
20 mg PO BID Qty: 60 1RF
coenzyme Q10 [CoQ-10] 100 mg Capsule
100 mg PO DAILY
cholecalciferol (vitamin D3) [Vitamin D3] 50 mcg (2,000 unit) Tablet
50 mcg PO DAILY
atorvastatin 40 mg tablet
40 mg PO HS
metformin 500 mg tablet
500 mg PO BID
thiamine HCl (vitamin B1) 100 mg tablet
100 mg PO DAILY
cyanocobalamin (vitamin B-12) 1,000 mcg/mL solution
1,000 mcg IM TH
Referrals:
Luciano Price MD [Family Provider] -
Interventions
Interventions:
*Risk Screen - Suicide Last Done: 06/09/24 10:54
*General Assessment Last Done: 06/09/24 10:54
*Neglect/Abuse Screening Last Done: 06/09/24 10:54
ED- Fall Risk Assessment Last Done: 06/09/24 11:18
*ED COVID-19 Vaccine History Last Done: 06/09/24 11:18
ED- Pulmonary Assessment Last Done: 06/09/24 11:18
ED- Neurological Assessment Last Done: 06/09/24 11:18
ED- Cardiac Assessment Last Done: 06/09/24 11:18
ED Swallowing Screen Last Done: 06/09/24 11:18
Discharge Date and Time
Print Language: SERBIAN
[2024-06-09 11:22] LABS: Glucose - Point of Care 135 mg/dl (70-99)
[2024-06-09 11:56] LABS: APTT 33.4 Sec (23.4-35.0); INR 1.32; PT 16.2 Sec (11.4-14.6)
[2024-06-09 11:57] LABS: % Basophils 0.6 % (0-2); % Eosinophils 4.7 % (0-6); % Immature Granulocytes 0.3 % (0-0.5); % Lymphocytes 16.3 % (20.5-51.1); % Monocytes 7.6 % (1.7-9.3); % Neutrophils 70.5 % (42.2-75.2); Absolute Basophils 0.1 10^3/uL (0-0.2); Absolute Eosinophils 0.4 10^3/uL (0-0.7); Absolute Lymphocytes 1.3 10^3/uL (1.2-3.4); Absolute Monocytes 0.6 10^3/uL (0.1-0.6); Absolute Neutrophils 5.4 10^3/uL (1.4-6.5); Hematocrit 43.9 % (37.0-47.0); Hemoglobin 15.1 g/dL (12.0-16.0); Mean Corp Hgb Conc. 34.4 g/dL (33.0-37.0); Mean Corpuscular Hgb 29.3 pg (27.0-31.0); Mean Corpuscular Volume 85.1 fL (81.0-99.0); Mean Platelet Volume 9.9 fL (7.4-10.4); Nucleated Red Blood Cells % 0 %; Platelet Count 265 10^3/uL (130-400); Red Blood Cell Count 5.16 10^6/uL (4.20-5.40); Red Cell Dist. Width 12.5 % (11.5-14.5); White Blood Cell Count 7.7 10^3/uL (4.8-10.8)
[2024-06-09 12:33] LABS: Urine Albumin Negative (Neg - Trace); Urine Bilirubin Negative (Negative); Urine Character Clear (Clear); Urine Color Yellow; Urine Glucose Negative (Negative); Urine Ketone Negative (Negative); Urine Leukocyte Negative (Negative); Urine Nitrite Negative (Negative); Urine Occult Blood Negative (Negative); Urine Urobilinogen Negative (Neg - 1+)
[2024-06-09 13:08] LABS: ALT (SGPT) 42 U/L (0-35); AST (SGOT) 63 U/L (14-36); Albumin 4.2 g/dl (3.5-5.0); Alkaline Phosphatase 119 U/L (38-126); Blood Urea Nitrogen 17 mg/dl (7-17); Calcium 9.6 mg/dl (8.4-10.2); Carbon Dioxide 23 mmol/L (22-30); Chloride 106 mmol/L (98-107); Estimated Creatinine Clearance 53 ml/min; Glucose 90 mg/dl (70-99); Sodium 137 mmol/L (135-145); Total Bilirubin 0.5 mg/dl (0.2-1.3); eGFR > 60.00
--- NOTE | 2024-06-09 13:24 | CON.NEURO4 ---
Documented by User: Carine Valdes NP 06/09/24 15:12
Consultation - Neurology 4
-
CONSULTING PHYSICIAN: Brad Cr MD
REFERRING PHYSICIAN: RUBEN/Cole Cole PA-C
DICTATED BY: MADI Reed
DATE/TIME OF REQUEST: 06/09/24
DATE/TIME OF CONSULTATION: 06/09/24
Reason for Consultation: Stroke Alert
History of Present Illness:
This is a 78-year-old right-handed female who has presented to the hospital with report of expressive aphasia. Patient was previously evaluated by our Neurology service in May 2024 for report of confusion and was found to have multiple acute
ischemic infarcts in the left cerebral hemisphere involving the left frontal, parietal, and occipital lobes.
From my previous evaluation on 05/19/24:
'This is a 78-year-old right-handed female who has presented to the hospital on 05/18/24 with report of confusion. Patient has been followed by Neurology as an outpatient in the past by Dr. Jiménez for dizziness, memory change, and tremor. She has
not been to the office since 2021. CT head imaging at that time was unremarkable. [employer] testing in 12/2021 was 118%, no depression.
Patient's son lives with her. He reports that he has had mild short-term memory issues for the past 3 years. She still drives, shops, cooks, cleans, and manages their finances without any issues. On Wednesday05/15/24 she was at her baseline. The
following day on 05/16/24 he reports that she went to a casino during the day. She called him in the afternoon asking what the combination to get into their garage was, which she has never forgotten. He reports that when he came home from work that
evening she seemed somewhat confused and also couldn't operate their TV remote. He thought maybe she had a little too much to drink and that was why she was behaving bizarrely. The following day (05/17/24) her confusion persisted, she couldn't
operate her cell phone and her gait seemed slightly off-balance. She didn't want to come to the hospital until yesterday morning (05/18/24) he finally convinced her too. CT head was obtained on arrival in the ER and is suggestive of a subacute left
FOCUSED [employer] MANAGER territory ischemic infarct, no LVO. She is on Eliquis 5mg BID due to a history of PE a few years ago. Her son reports that she sometimes forgets to take her medications. She was not a candidate for TNK/IAT due to being outside of the time
window. Today (05/19/24), she reports feeling at her baseline but her sons note she is still confused. She denies any headache, dizziness, vision changes, speech/swallow difficulty, numbness, weakness, chest pain, palpitations, and shortness of
breath.'
Today (06/09/24), patient and her family report that she woke up this morning in her usual state. At 0800 she suddenly developed severe speech difficulty. On arrival in the ER, her speech had significantly improved per her family. CT head was
obtained and is negative for any acute abnormalities. NIHSS is 0. She is not a candidate for TNK/IAT due to NIHSS 0 and Eliquis dose this morning. Patient denies any headache, dizziness, vision changes, speech/swallow difficulty, numbness, weakness,
chest pain, palpitations, and shortness of breath. She denies missing any doses of Eliquis.
Around 1345, on evaluation by the hospitalist physician, patient was noted to have right hand weakness prompting CTA head/neck imaging to be ordered. On Neurology's re-evaluation at 1430 patient's right hand weakness has resolved. NIHSS is 0.
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
Surgical History: Cholecystectomy.
Family History: Mother- from a cerebral aneurysm rupture.
Social History: Every other day alcohol, 2 liquor drinks. Former smoker. Denies illicit drug use.
Allergies: Iodinated contrast.
Home Medications: See below.
Review of Symptoms:
Patient denies any fever, headache, chest pain, shortness of breath, GI or symptoms.
�Per the HPI.�All systems are reviewed negative except above.
Physical Exam:
The patient is afebrile, abdomen is nondistended, breathing is unlabored, skin is warm and dry, no edema.
NIH Stroke Scale:
I performed the NIH stroke scale on the patient on 06/09/24 at 1130. The patient scored 0 points on the NIH stroke scale assessment, which were assigned as follows:
Neurologic Examination:
The patient is awake, alert and oriented x 3. She is able to follow commands and answer questions appropriately. There is no aphasia or dysarthria. On cranial nerve assessment, pupils are 3 mm bilateral, round and reactive to light and
accommodation. Visual arnold are full. Extraocular movements are intact. Facial sensations are intact and bilaterally symmetrical, there is no facial asymmetry. Hearing is intact bilaterally to normal conversation volume. Tongue palate and uvula
are midline. Sternocleidomastoid strengths are full bilaterally. Motor strengths are 5/5 bilateral upper and lower extremities on medical research [place] scale. There is no drift or involuntary movement noted. Deep tendon reflexes are 2+ bilateral
upper and lower extremities and Babinski is absent bilaterally. Sensations of pain, touch, temperature and vibration are intact and bilaterally symmetrical. There was no extinction noted on double simultaneous stimulation. Coordination is intact by
finger to nose bilaterally.
Lab Results: See below.
Neuro Imaging:
1. CT head 06/09/24: No acute intracranial abnormality. Subacute infarct within the posterior left parietal lobe, with decreased cytotoxic edema compared to the prior MRI. Moderate chronic white matter disease. ASPECTS score: 10.
2. MRI brain 05/19/24: MULTIPLE ACUTE ISCHEMIC INFARCTS in the LEFT CEREBRAL HEMISPHERE involving the cortical dave matter and white matter of the left frontal, parietal, and occipital lobes measuring up to 4.8 cm in size in the posterior left
parietal-occipital lobe junction. 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 Mild diffuse cerebral and cerebellar volume loss. Moderate mucosal disease in the left sphenoid sinus.
3. MRA head 05/19/24: ACUTE COMPLETE OCCLUSION of the distal M1 segment of the LEFT MIDDLE CEREBRAL ARTERY with collateral blood supply reaching the M2 segments of the left middle cerebral artery. 70% diameter stenosis in the distal M1 segment of the
right middle cerebral artery. 50-70% diameter stenosis in the clinoid segment of the left ICA. 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
50-70% diameter stenosis in the P1 segment of the left posterior cerebral artery. 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
4. Carotid ultrasound 05/19/24: RIGHT: A mix of calcified and soft plaque is identified in the proximal internal carotid artery. Carotid velocity profile is consistent with less than 50% stenosis. Vertebral artery flow is antegrade. LEFT: A mix of
calcified and soft plaque is identified in the proximal internal carotid artery. Carotid velocity profile is consistent with less than 50% stenosis. Vertebral artery flow is antegrade.
Differentials for the patient's presentation include:
1. TIA vs acute left hemisphere ischemic infarct likely producing patient's symptoms.
2. Metabolic abnormality possibly contributing to symptoms.
3. Elevated liver enzymes.
Patient has the following risk factors for their symptoms: Recent stroke, HTN, HLD, NIDDM
IV Tenecteplase/IAT candidacy: She is not a candidate for TNK/IAT due to NIHSS 0 and Eliquis dose this morning.
Recommendations:
-CTA head/neck urgent pending.
-MRI brain noncontrast pending.
-Continue Eliquis 5mg BID.
-Permissive hypertension SBP<220, DBP<120 until tomorrow at 0800, then goal normotension.
-LDL goal <70. LDL is 118, continue home atorvastatin 40mg daily.
-Goal normoglycemia, hbA1c is 7.8.
-Checking blood work for metabolic abnormalities.
-NIHSS and neurological checks per unit guidelines.
-Provide patient with stroke education packet.
-PT/OT/ST evaluations.
-DVT prophylaxis with OAC.
-Will follow pending results.
Discussed patient care with: Dr. cr, the patient, patient's family
Vital Signs and Labs
-
Vital Signs and Labs:
Vital Signs
Temp Pulse Resp BP Pulse Ox
98.5 F 98 15 129/113 95
06/09/24 10:54 06/09/24 14:15 06/09/24 13:15 06/09/24 14:00 06/09/24 14:15
Lab Results
06/09/24 11:19
06/09/24 12:42
PT 16.2 Sec (11.4-14.6) H 06/09/24 11:19
INR 1.32 06/09/24 11:19
APTT 33.4 Sec (23.4-35.0) 06/09/24 11:19
Sodium 137 mmol/L (135-145) 06/09/24 12:42
Potassium 4.0 mmol/L (3.5-5.1) 06/09/24 12:42
BUN 17 mg/dl (7-17) 06/09/24 12:42
Glucose 90 mg/dl (70-99) 06/09/24 12:42
Calcium 9.6 mg/dl (8.4-10.2) 06/09/24 12:42
Medications
-
Home Medications
�Medication �Instructions �Recorded
amlodipine 10 mg-benazepril 20 mg 1 cap PO DAILY Blood Pressure 05/18/24
capsule
apixaban 5 mg tablet (Eliquis) 5 mg PO BID Blood Clot prev; h/o PE 05/18/24
aspirin 81 mg tablet,delayed 81 mg PO DAILY Blood clot 05/21/24
release prevention/tx #0 tabs
famotidine 20 mg tablet 20 mg PO BID Gastrointestinal 05/21/24
issue #60 tabs
atorvastatin 40 mg tablet 40 mg PO HS High cholesterol 06/09/24
cholecalciferol (vitamin D3) 50 50 mcg PO DAILY Supplement 06/09/24
mcg (2,000 unit) tablet (Vitamin
D3)
coenzyme Q10 100 mg capsule 100 mg PO DAILY Supplement 06/09/24
(CoQ-10)
cyanocobalamin (vitamin B-12) 1,000 mcg IM TH B 12 defeciency 06/09/24
1,000 mcg/mL injection solution
metformin 500 mg tablet 500 mg PO BID Diabetes 06/09/24
thiamine HCl (vitamin B1) 100 mg 100 mg PO DAILY Supplement 06/09/24
tablet
NIH Stroke Score
Subsequent NIH Scale
Date of Subsequent NIH Scale: 06/09/24
Time of Subsequent NIH Scale: 11:30
NIH Stroke Score
Level of Consciousness: 0 - Alert
LOC Questions: 0-Answers both correctly
LOC Commands: 0-Performs both correctly
Best Horizontal Gaze: 0-Normal
Visual Arnold: 0=Normal, no visual loss
Facial Palsy: 0=Normal, symmetrical
Motor - Right Arm: 0=No drift 10 seconds
Motor - Left Arm: 0=No drift 10 seconds
Motor - Right Le-No drift 5 seconds
Motor - Left Le-No drift 5 seconds
Limb Ataxia: 0-Absent
Sensation: 0-Normal
Best Language: 0-No aphasia
Dysarthria: 0-Normal
Extinction and Inattention: 0-No abnormality
Total Score:: 0
Modified Dominique (mRS) Score
Modified Dominique Scale (mRS): No symptoms
Score: 0
Alteplase Contraindication
Inclusion and Exclusion criteria reviewed: Yes
Reasons for NON-Tx with Thrombolytics ABSOLUTE Exclusions: Patient taking oral anticoagulant and last dose within 48 hours

Documented by User: Brad Cr MD 06/10/24 14:31
Consultation - Neurology 4
-
CONSULTING PHYSICIAN: Brad Cr MD
REFERRING PHYSICIAN: ER/Cole Cole PA-C
DICTATED BY: MADI Reed
DATE/TIME OF REQUEST: 06/09/24
DATE/TIME OF CONSULTATION: 06/09/24
Reason for Consultation: Stroke Alert
History of Present Illness:
This is a 78-year-old right-handed female who has presented to the hospital with report of expressive aphasia. Patient was previously evaluated by our Neurology service in May 2024 for report of confusion and was found to have multiple acute
ischemic infarcts in the left cerebral hemisphere involving the left frontal, parietal, and occipital lobes.
From my previous evaluation on 05/19/24:
'This is a 78-year-old right-handed female who has presented to the hospital on 05/18/24 with report of confusion. Patient has been followed by Neurology as an outpatient in the past by Dr. Jiménez for dizziness, memory change, and tremor. She has
not been to the office since 2021. CT head imaging at that time was unremarkable. Neuro[employer] testing in 12/2021 was 118%, no depression.
Patient's son lives with her. He reports that he has had mild short-term memory issues for the past 3 years. She still drives, shops, cooks, cleans, and manages their finances without any issues. On Wednesday05/15/24 she was at her baseline. The
following day on 05/16/24 he reports that she went to a casino during the day. She called him in the afternoon asking what the combination to get into their garage was, which she has never forgotten. He reports that when he came home from work that
evening she seemed somewhat confused and also couldn't operate their TV remote. He thought maybe she had a little too much to drink and that was why she was behaving bizarrely. The following day (05/17/24) her confusion persisted, she couldn't
operate her cell phone and her gait seemed slightly off-balance. She didn't want to come to the hospital until yesterday morning (05/18/24) he finally convinced her too. CT head was obtained on arrival in the ER and is suggestive of a subacute left
FOCUSED FA[employer]ORY MANAGER territory ischemic infarct, no LVO. She is on Eliquis 5mg BID due to a history of PE a few years ago. Her son reports that she sometimes forgets to take her medications. She was not a candidate for TNK/IAT due to being outside of the time
window. Today (05/19/24), she reports feeling at her baseline but her sons note she is still confused. She denies any headache, dizziness, vision changes, speech/swallow difficulty, numbness, weakness, chest pain, palpitations, and shortness of
breath.'
Today (06/09/24), patient and her family report that she woke up this morning in her usual state. At 0800 she suddenly developed severe speech difficulty. On arrival in the ER, her speech had significantly improved per her family. CT head was
obtained and is negative for any acute abnormalities. NIHSS is 0. She is not a candidate for TNK/IAT due to NIHSS 0 and Eliquis dose this morning. Patient denies any headache, dizziness, vision changes, speech/swallow difficulty, numbness, weakness,
chest pain, palpitations, and shortness of breath. She denies missing any doses of Eliquis.
Around 1345, on evaluation by the hospitalist physician, patient was noted to have right hand weakness prompting CTA head/neck imaging to be ordered. On Neurology's re-evaluation at 1430 patient's right hand weakness has resolved. NIHSS is 0.
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
Surgical History: Cholecystectomy.
Family History: Mother- from a cerebral aneurysm rupture.
Social History: Every other day alcohol, 2 liquor drinks. Former smoker. Denies illicit drug use.
Allergies: Iodinated contrast.
Home Medications: See below.
Review of Symptoms:
Patient denies any fever, headache, chest pain, shortness of breath, GI or symptoms.
�Per the HPI.�All systems are reviewed negative except above.
Physical Exam:
The patient is afebrile, abdomen is nondistended, breathing is unlabored, skin is warm and dry, no edema.
NIH Stroke Scale:
I performed the NIH stroke scale on the patient on 06/09/24 at 1130. The patient scored 0 points on the NIH stroke scale assessment, which were assigned as follows:
Neurologic Examination:
The patient is awake, alert and oriented x 3. She is able to follow commands and answer questions appropriately. There is no aphasia or dysarthria. On cranial nerve assessment, pupils are 3 mm bilateral, round and reactive to light and
accommodation. Visual arnold are full. Extraocular movements are intact. Facial sensations are intact and bilaterally symmetrical, there is no facial asymmetry. Hearing is intact bilaterally to normal conversation volume. Tongue palate and uvula
are midline. Sternocleidomastoid strengths are full bilaterally. Motor strengths are 5/5 bilateral upper and lower extremities on medical research [place] scale. There is no drift or involuntary movement noted. Deep tendon reflexes are 2+ bilateral
upper and lower extremities and Babinski is absent bilaterally. Sensations of pain, touch, temperature and vibration are intact and bilaterally symmetrical. There was no extinction noted on double simultaneous stimulation. Coordination is intact by
finger to nose bilaterally.
Lab Results: See below.
Neuro Imaging:
1. CT head 06/09/24: No acute intracranial abnormality. Subacute infarct within the posterior left parietal lobe, with decreased cytotoxic edema compared to the prior MRI. Moderate chronic white matter disease. ASPECTS score: 10.
2. MRI brain 05/19/24: MULTIPLE ACUTE ISCHEMIC INFARCTS in the LEFT CEREBRAL HEMISPHERE involving the cortical dave matter and white matter of the left frontal, parietal, and occipital lobes measuring up to 4.8 cm in size in the posterior left
parietal-occipital lobe junction. 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 Mild diffuse cerebral and cerebellar volume loss. Moderate mucosal disease in the left sphenoid sinus.
3. MRA head 05/19/24: ACUTE COMPLETE OCCLUSION of the distal M1 segment of the LEFT MIDDLE CEREBRAL ARTERY with collateral blood supply reaching the M2 segments of the left middle cerebral artery. 70% diameter stenosis in the distal M1 segment of the
right middle cerebral artery. 50-70% diameter stenosis in the clinoid segment of the left ICA. 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
50-70% diameter stenosis in the P1 segment of the left posterior cerebral artery. 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
4. Carotid ultrasound 05/19/24: RIGHT: A mix of calcified and soft plaque is identified in the proximal internal carotid artery. Carotid velocity profile is consistent with less than 50% stenosis. Vertebral artery flow is antegrade. LEFT: A mix of
calcified and soft plaque is identified in the proximal internal carotid artery. Carotid velocity profile is consistent with less than 50% stenosis. Vertebral artery flow is antegrade.
Differentials for the patient's presentation include:
1. TIA vs acute left hemisphere ischemic infarct likely producing patient's symptoms.
2. Metabolic abnormality possibly contributing to symptoms.
3. Elevated liver enzymes.
Patient has the following risk factors for their symptoms: Recent stroke, HTN, HLD, NIDDM
IV Tenecteplase/IAT candidacy: She is not a candidate for TNK/IAT due to NIHSS 0 and Eliquis dose this morning.
Recommendations:
-CTA head/neck urgent pending.
-MRI brain noncontrast pending.
-Continue Eliquis 5mg BID.
-Permissive hypertension SBP<220, DBP<120 until tomorrow at 0800, then goal normotension.
-LDL goal <70. LDL is 118, continue home atorvastatin 40mg daily.
-Goal normoglycemia, hbA1c is 7.8.
-Checking blood work for metabolic abnormalities.
-NIHSS and neurological checks per unit guidelines.
-Provide patient with stroke education packet.
-PT/OT/ST evaluations.
-DVT prophylaxis with OAC.
-Will follow pending results.
Discussed patient care with: Dr. Cr, the patient, patient's family
Addendum: Mrs Anabella Valdovinos 78 yr. 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
PLAN: Eliquis 5 mg BID/Plavix 75/Lipitor 80
Permissive HTN
Second opinion from [facility] with regards to M1 stenosis and possible stent
PT
NIH Stroke Score
NIH Stroke Score
Total Score:: 0
Modified Dominique (mRS) Score
Score: 0
[2024-06-09] MEDS: BENADRYL 50 MG IV (14:08)
[2024-06-09] MEDS: SOLU-CORTEF 200 MG IV (14:08)
[2024-06-09 18:07] LABS: Glucose - Point of Care 153 mg/dl (70-99)
[2024-06-09] MEDS: NSS 1000 IV (18:11)
--- NOTE | 2024-06-09 18:30 | HPS.HSE ---
Family Physician
-
Family Physician: Luciano Price
Chief Complaint
-
aphasia
History of Present Illness
78yo F with PMHx of HLD, ASCVD, VTE on ELiquis, DM, Hx of stroke less then 1 mo ago (presented with confusion at that time) with clot in M1 segment L MCA, now came with aphasia and new R hand weakness with 3-5 figer drop that was transient. Aphasia
started 4 hours before presenting to the hospital. Patient reported compliance with medication.
Previously recommended for outpatient cardiac monitoring
Found L MCA M1 severe non-oclusive stenosis, ED discussed with [facility], but patient felt to be not a candidate for transfer for stent 2/2 low NIHSS, ELiqus use and stenosis present on MRI last month
Medical History
Past Medical History
Past Medical History: Reports Other
Additional Past Medical History:
See HPI
Past Surgical History: Reports None
Social History
Tobacco: Non-smoker
Alcohol: None
Drug: None
Family History
Family History: Not pertinent
Allergies / Home Medications
Allergies reflects when Allergies were last updated in [email or web address].
Home Medications with original date entered in [email or web address]
Allergy/Medication List:
Allergies
Allergy/AdvReac Type Severity Reaction Status Date / Time
Iodinated Contrast Media Allergy Hives Verified 05/18/24 10:00
[IV Dye, Iodine Containing
Contrast ]
Home Medications
amlodipine 10 mg-benazepril 20 mg capsule 1 cap PO DAILY Blood Pressure 05/18/24
apixaban 5 mg tablet (Eliquis) 5 mg PO BID Blood Clot prev; h/o PE 05/18/24
aspirin 81 mg tablet,delayed release 81 mg PO DAILY Blood clot prevention/tx #0 tabs 05/21/24
famotidine 20 mg tablet 20 mg PO BID Gastrointestinal issue #60 tabs 05/21/24
atorvastatin 40 mg tablet 40 mg PO HS High cholesterol 06/09/24
cholecalciferol (vitamin D3) 50 mcg (2,000 unit) tablet (Vitamin D3) 50 mcg PO DAILY Supplement 06/09/24
coenzyme Q10 100 mg capsule (CoQ-10) 100 mg PO DAILY Supplement 06/09/24
cyanocobalamin (vitamin B-12) 1,000 mcg/mL injection solution 1,000 mcg IM TH B 12 defeciency 06/09/24
metformin 500 mg tablet 500 mg PO BID Diabetes 06/09/24
thiamine HCl (vitamin B1) 100 mg tablet 100 mg PO DAILY Supplement 06/09/24
Review of Systems
-
History Source: Patient
A 12 point ROS was completed and negative except as noted: Yes
Neurological: Reports See HPI
Physical Exam
Vital Signs
Vital Signs
Temp Pulse Resp BP Pulse Ox
98.5 F 107 23 143/96 95
06/09/24 10:54 06/09/24 17:45 06/09/24 18:00 06/09/24 17:01 06/09/24 18:00
Physical Exam
General: No Apparent Distress
HEENT: NormoCephalic
Respiratory: Clear; No Wheezes, Rales or Rhonchi
Cardiac: S1/S2 and Regular Rhythm
GI: Soft, Non Tender and Non Distended
Genito-urinary: Clear Urine
Musculoskeletal: No Clubbing, No Cyanosis and No Edema
Skin: Warm
Neuro: Awake, Alert, Oriented and AO x 3
Psych: Calm
Laboratory Results
-
06/09/24 11:19
06/09/24 12:42
Laboratory Results
PT 16.2 Sec (11.4-14.6) H 06/09/24 11:19
INR 1.32 06/09/24 11:19
APTT 33.4 Sec (23.4-35.0) 06/09/24 11:19
Total Bilirubin 0.5 mg/dl (0.2-1.3) 06/09/24 12:42
AST 63 U/L (14-36) H 06/09/24 12:42
ALT 42 U/L (0-35) H 06/09/24 12:42
Alkaline Phosphatase 119 U/L (38-126) 06/09/24 12:42
Data Reviewed
-
CT Scan: Report Reviewed by me
MRI: Report Reviewed by me
Lab Data: Labs Reviewed by me
Impression/Plan
-
A/P:
#Hx of CVA with concern for new acute CVA/TIA with expressive aphasia and RUE weakness
#L MCA M1 severe non-oclusive stenosis
HEad CT unremarkable
CTA head/neck pending
Past Echo showed no PFO
ASA, statin (increase dose, with fatty liver - statin also first line treatment) and follow LFT
cont eliquis as per neurology
Neurochecks
check TSH, LDL
CTA showed L MCA M1 severe non-oclusive stenosis, ED discussed in details with [facility] and since same lesion seen on the previous MRI last month and patient being on ELiquis - declined transfer for higher level of management, advised
DAPT/Eliquis as per neurologist
MRI brain showed several tiny new, acute infarcts in the territory of the left middle cerebral artery
CHeck VerifyNow ASA
#ICA ophthalmic segment 2mm aneurism
Outpatient neuro follow up
#DM type 2 with neuropathy
Insulin SS, DM diet, HgbA1c
Hold metformin
#Essential HTN
permissive HTN for 24h
restart home meds afterwards
Labetalol for BP>180/105
#Hx of VTE
cont ELiquis
#9mm R thyroid nodule
outpatient US thyroid with PCP
#Transaminitis
2/2 fatty liver
Statin and low fat diet
DVT ppx Eliquis
Full code
I have spent at least 79min admitting the patient, reviewing chart, test results, communication with consultants and direct patient care
[2024-06-09] MEDS: ASPIRIN 325 MG PO (18:43)
[2024-06-09] MEDS: PLAVIX 300 MG PO (18:43)
[2024-06-09 21:19] LABS: Glucose - Point of Care 277 mg/dl (70-99)
[2024-06-09] MEDS: ELIQUIS 5 MG PO (22:00)
[2024-06-10 03:54] VITALS: BP 127/78
--- NOTE | 2024-06-10 07:02 | W.PN.HOSP.TC ---
Today's Communication/Plan
-
pending further recommendation from neurology
cont Plavix
Assessment / Plan
Assessment / Plan
78yo F with PMHx of HLD, ASCVD, VTE on ELiquis, DM, Hx of stroke less then 1 mo ago (presented with confusion at that time) with clot in M1 segment L MCA, now came with aphasia and new R hand weakness with 3-5 figer drop that was transient. Aphasia
started 4 hours before presenting to the hospital. Patient reported compliance with medication.
Previously recommended for outpatient cardiac monitoring
FOund L MCA M1 severe non-oclusive stenosis, ED discussed with [facility], but patient felt to be not a candidate for transfer for stent 2/2 low NIHSS, Eliquis use and stenosis present on MRI last month
patient already awating for desk monitor to be sent to her mail as ordered by cardiology and has outpatient neurology appointment
A/P:
#Hx of CVA with concern for new acute CVA/TIA with expressive aphasia and RUE weakness
#L MCA M1 severe non-oclusive stenosis
HEad CT unremarkable
CTA head/neck pending
Past Echo showed no PFO
ASA, statin (increase dose, with fatty liver - statin also first line treatment) and follow LFT
cont eliquis as per neurology
Neurochecks
TSH, LDL
CTA showed L MCA M1 severe non-oclusive stenosis, ED discussed in details with [facility] neuroSx and since same lesion seen on the previous MRI last month and patient being on ELiquis - declined transfer for higher level of management, advised
DAPT/Eliquis as per neurologist
MRI brain showed several tiny new, acute infarcts in the territory of the left middle cerebral artery
CHeck VerifyNow ASA
#ICA ophtalmic segment 2mm aneurism
Outpatient neuro follow up
#DM type 2 with neuropathy
Insulin SS, DM diet, HgbA1c
Hold metformin
#Essential HTN
permissive HTN for 24h
restart home meds afterwards
Labetalol for BP>180/105
#Hx of VTE
cont ELiquis
#9mm R thyroid nodule
outpatient US thyroid with PCP
#Transaminitis
2/2 fatty liver
Statin and low fat diet
DVT ppx Eliquis
Full code
I have spent at least 79min admitting the patient, reviewing chart, test results, communication with consultants and direct patient care
Anticipated Discharge: Within 24 hours
Subjective/Interval History
-
Date of Service: June 10, 2024
Objective Data
-
Labs:
Laboratory Results
06/10/24
06:00
WBC Pending
Hgb Pending
Hct Pending
Plt Count Pending
Sodium Pending
Potassium Pending
Chloride Pending
Carbon Dioxide Pending
BUN Pending
Creatinine Pending
Glucose Pending
Calcium Pending
Total Bilirubin Pending
AST Pending
ALT Pending
Alkaline Phosphatase Pending
Vital Signs:
Vital Signs
Temp Pulse Resp BP Pulse Ox
98.0 F 67 18 127/78 93
06/10/24 03:54 06/10/24 03:54 06/10/24 03:54 06/10/24 03:54 06/10/24 03:54
I&O
06/09/24 06/10/24 06/11/24
06:59 06:59 06:59
Intake Total 240 / 240
Balance 240 / 240
Physical Exam
-
General: Well Developed, Well Nourished and No Apparent Distress
HEENT: Normocephalic
Cardiac: Regular Rhythm
GI: Soft, Nontender and Nondistended
Genito-urinary: No Costovertebral Tender
Musculoskeletal: No Clubbing, No Cyanosis and No Edema
Skin: Warm; Negative Dry or Rash
Neuro: Awake, Alert, Oriented, AO x 3 and Nonfocal/Grossly Intact
Psych: Calm
[2024-06-10 07:15] VITALS: BP 144/72
[2024-06-10 08:02] LABS: Glucose - Point of Care 105 mg/dl (70-99)
[2024-06-10] MEDS: NOVOLOG FLEXPEN-LOW RESISTANCE SC (08:12)
[2024-06-10] MEDS: VITAMIN B1 100 MG PO (08:21)
[2024-06-10] MEDS: VITAMIN D3 (cholecalciferol) 50 MCG PO (08:21)
[2024-06-10] MEDS: ELIQUIS 5 MG PO (08:21)
[2024-06-10] MEDS: ASPIR LOW (ENTERIC COATED) 81 MG PO (08:21)
[2024-06-10 09:22] LABS: % Basophils 0.3 % (0-2); % Eosinophils 0.6 % (0-6); % Immature Granulocytes 0.3 % (0-0.5); % Lymphocytes 17.4 % (20.5-51.1); % Monocytes 4.6 % (1.7-9.3); % Neutrophils 76.8 % (42.2-75.2); Absolute Eosinophils 0.1 10^3/uL (0-0.7); Absolute Lymphocytes 1.5 10^3/uL (1.2-3.4); Absolute Monocytes 0.4 10^3/uL (0.1-0.6); Absolute Neutrophils 6.7 10^3/uL (1.4-6.5); Hematocrit 41.2 % (37.0-47.0); Hemoglobin 13.9 g/dL (12.0-16.0); Mean Corp Hgb Conc. 33.7 g/dL (33.0-37.0); Mean Corpuscular Hgb 28.4 pg (27.0-31.0); Mean Corpuscular Volume 84.3 fL (81.0-99.0); Mean Platelet Volume 9.5 fL (7.4-10.4); Nucleated Red Blood Cells % 0 %; Platelet Count 271 10^3/uL (130-400); Red Blood Cell Count 4.89 10^6/uL (4.20-5.40); Red Cell Dist. Width 12.4 % (11.5-14.5); White Blood Cell Count 8.8 10^3/uL (4.8-10.8)
[2024-06-10 09:52] VITALS: BP 148/80; PULSE 79
[2024-06-10 09:54] VITALS: BP 148/80; PULSE 79
[2024-06-10 09:57] LABS: ALT (SGPT) 39 U/L (0-35); AST (SGOT) 50 U/L (14-36); Albumin 3.7 g/dl (3.5-5.0); Alkaline Phosphatase 102 U/L (38-126); Blood Urea Nitrogen 16 mg/dl (7-17); Calcium 9.2 mg/dl (8.4-10.2); Carbon Dioxide 22 mmol/L (22-30); Chloride 107 mmol/L (98-107); Estimated Creatinine Clearance 59 ml/min; Glucose 165 mg/dl (70-99); HDL Cholesterol 36 mg/dl; LDL Cholesterol, Calculated 48 mg/dl; Potassium 3.8 mmol/L (3.5-5.1); Sodium 137 mmol/L (135-145); Total Bilirubin 0.5 mg/dl (0.2-1.3); Total Cholesterol 102 mg/dl (50-199); Total Protein 6.5 g/dl (6.3-8.2); Triglyceride 91 mg/dl (10-149); Very Low Density Lipoprotein 18 mg/dl (0-30); eGFR > 60.00
[2024-06-10] MEDS: NORVASC 5 MG PO (10:01)
[2024-06-10] MEDS: PLAVIX 75 MG PO (10:01)
[2024-06-10] MEDS: CYANOCOBALAMIN 1000 MCG IM (10:15)
[2024-06-10 10:24] LABS: TSH Reflex To Free T4 1.14 uIU/ml (0.47-4.68)
--- NOTE | 2024-06-10 11:10 | PTOTSP ---
Speech therapy
Presentation: Patient has a history of speech, language, and cognitive deficits (see 05/21/24 ST eval note for details). Patient appears to be demonstrating similar deficits as prior (i.e. expressive aphasia, cognitive deficits). Patient and son
stated that she has been working with ST at home and is planning on starting ST outpatient therapy; pending hospitalization. Patient's overall presentation appears to be WNL but patient appeared to 'mask' her deficits last admission; evidenced by
assessment scores (see 05/21/24 speech evaluation note for details).
Swallowing Function: Patient was observed with several bites of cracker and sips (straw) of thin liquids in which she appeared to tolerate as she did not exhibit any overt clinical s/sx of aspiration or difficulty with mastication/ manipulation.
Patient denied any dysphagia complaints.
Recommendations:
1) Continuation of regular consistency solids and thin liquids
2) Standard aspiration precautions
3) Medications as tolerated
4) Continuation of speech therapy (consider speech evaluation)
Plan: SHIELD INSTALLER will continue to follow; pending hospitalization.
[2024-06-10 11:26] LABS: Glucose - Point of Care 159 mg/dl (70-99)
[2024-06-10] MEDS: NOVOLOG FLEXPEN-LOW RESISTANCE 1 UNITS SC (11:39)
--- NOTE | 2024-06-10 13:44 | W.DCSUMMARY ---
Discharge Summary
Discharge Data
Date of Admission: 06/09/24
Date of Discharge: 06/10/24
-
Pending Results: No
Hospital Course
78yo F with PMHx of HLD, ASCVD, VTE on ELiquis, DM, Hx of stroke less then 1 mo ago (presented with confusion at that time) with clot in M1 segment L MCA, now came with aphasia and new R hand weakness with 3-5 finger drop that was transient. Aphasia
started 4 hours before presenting to the hospital. Patient reported compliance with medication.
Previously recommended for outpatient cardiac monitoring
Found L MCA M1 severe non-oclusive stenosis, ED discussed with [facility], but patient felt to be not a candidate for transfer for stent 2/2 low NIHSS, Eliquis use and stenosis present on MRI last month
No Afib on telemetry
patient already awaiting for cardiac monitor technician to be sent to her mail as ordered by cardiology and has outpatient neurology appointment. At this time neurologist suggested to switch ASA to Plavix and increase Lipitor. Also adjusted BP meds to avoid
hypotension. FUrther adjustment to be made by PCP. VeryfyNow for ASA could not be completed as machine was down in the lab. US of thyroid recommended with PCP. Patient and family verbalized understanding of the instructions
Patient I have spent at least 37min preparing d/c
Patient was managed for:
#Hx of CVA with concern for new acute CVA/TIA with expressive aphasia and RUE weakness
#L MCA M1 severe non-oclusive stenosis
#new, acute infarcts in the territory of the left middle cerebral artery
#ICA ophtalmic segment 2mm aneurism
#DM type 2 with neuropathy
#Essential HTN
#Hx of VTE
#9mm R thyroid nodule
#Transaminitis
Discharge Plan
-
Patient Disposition: Home (Routine Discharge)
Discharge Diagnosis/Procedures: CVA
Diet: Low Cholesterol
Activity: As tolerated
Driving Restrictions: As prior to admission
Bathing Restrictions: None
Activity Restrictions/Additional Instructions:
Schedule thyroid ultrasound for the nodule that was accidentally found on CT
Referrals:
Luciano Price MD [Family Provider] - (Thyroid US)
Prescriptions:
New
atorvastatin 80 mg Tablet
80 mg PO QPM Qty: 30 0RF
amlodipine 5 mg Tablet
5 mg PO DAILY Qty: 30 0RF
clopidogrel [Plavix] 75 mg tablet
75 mg PO DAILY Qty: 30 0RF
lisinopril 5 mg tablet
5 mg PO DAILY Qty: 30 0RF
Continued
Eliquis 5 MG tablet
5 mg PO BID
famotidine 20 mg Tablet
20 mg PO BID Qty: 60 1RF
coenzyme Q10 [CoQ-10] 100 mg Capsule
100 mg PO DAILY
cholecalciferol (vitamin D3) [Vitamin D3] 50 mcg (2,000 unit) Tablet
50 mcg PO DAILY
metformin 500 mg tablet
500 mg PO BID
thiamine HCl (vitamin B1) 100 mg tablet
100 mg PO DAILY
cyanocobalamin (vitamin B-12) 1,000 mcg/mL solution
1,000 mcg IM TH
Discontinued
amlodipine-benazepril 10-20 mg capsule
1 cap PO DAILY
aspirin 81 mg Tablet,Delayed Release (Dr/Ec)
81 mg PO DAILY Qty: 0 0RF
atorvastatin 40 mg tablet
40 mg PO HS
Discharge Orders:
Discharge Patient (As Directed); Ordered 06/10/24
Ordered By: Dawit Curry
Discharge Date and Time
Print Language: SERBIAN
--- NOTE | 2024-06-10 14:31 | W.PN.NEURO.1 ---
Today's Communication / Plan
-
May go home on Eliquis/Plavix/Lipitor 80. PT
Second opinion from Himanshu GAMA
Neuro Assessment/Plan
Assessment
78 yr. old lady with h/o Left MCA infarctions secondary to left M1 Stenosis with intermittent episodes of right arm/hand weakness that has resolved
Plan
Continue Eliquis. Switch aspirin to Plavix. Lipitor 80 mg. PT
Subjective/Objective
Subjective Data
Date of Service: June 10, 2024
Mrs Anabella Valdovinos is doing well. has had few episodes of right arm/hand weakness resolved spontaneously. At the time of my exam she is asymptomatic
Objective Data
Vital Signs
Temp Pulse Resp BP Pulse Ox
36.5 C 77 16 146/79 96
06/10/24 07:15 06/10/24 10:01 06/10/24 07:15 06/10/24 10:01 06/10/24 07:15
Lab Results
06/10/24 08:57
06/10/24 08:57
PT 16.2 Sec (11.4-14.6) H 06/09/24 11:19
INR 1.32 06/09/24 11:19
APTT 33.4 Sec (23.4-35.0) 06/09/24 11:19
Sodium 137 mmol/L (135-145) 06/10/24 08:57
Potassium 3.8 mmol/L (3.5-5.1) 06/10/24 08:57
BUN 16 mg/dl (7-17) 06/10/24 08:57
Glucose 165 mg/dl (70-99) H 06/10/24 08:57
Calcium 9.2 mg/dl (8.4-10.2) 06/10/24 08:57
LDL Cholesterol, Calc 48 mg/dl 06/10/24 08:57
Patient Allergies
Iodinated Contrast Media [IV Dye, Iodine Containing Contrast ] Allergy (Verified 05/18/24 10:00)
Hives
[2024-06-10 15:09] VITALS: BP 141/81
== END 2024-06-10 15:15 | disposition home or self-care (01) | DRG 66 ==
LOC: 4 WEST ACU 18:53
PROVIDERS: Physician Assistant; ADMITTING PHYSICIAN Internal Medicine; CONSULT PHYSICIAN Psychiatry & Neurology Neurology; EMERGENCY PHYSICIAN Emergency Medicine; FAMILY PHYSICIAN Family Medicine
DX: I63.512 Cerebral infarction due to unspecified occlusion or stenosis of left middle cerebral artery (principal); I69.320 Aphasia following cerebral infarction; Z79.01 Long term (current) use of anticoagulants; E04.1 Nontoxic single thyroid nodule; E11.40 Type 2 diabetes mellitus with diabetic neuropathy, unspecified; E78.5 Hyperlipidemia, unspecified; I10 Essential (primary) hypertension; I25.10 Atherosclerotic heart disease of native coronary artery without angina pectoris; R29.700 NIHSS score 0
CPT/HCPCS: 70450; 70496; 70498; 70551; 80053; 80061; 81003; 82962; 84443; 85025; 85610; 85730; 92610; 93005; 96361; 96374; 96375; 97116; 97161; 97165; 99285; Q9967

== ENCOUNTER 2024-06-17 18:43 | Emergency (ER) | payer OTHER, SELFPAY ==
[2024-06-17 18:50] VITALS: BP 169/78
[2024-06-17 18:50] LABS: Glucose - Point of Care 157 mg/dl (70-99)
[2024-06-17 18:54] VITALS: BMI 33.1
[2024-06-17] MEDS: SOLU-MEDROL PF 125 MG IV (18:55)
--- NOTE | 2024-06-17 18:55 | ED.CVA ---
History of Present Illness
General
Chief Complaint: CVA/TIA Symptoms
Time Seen by Provider: 06/17/24 18:52
Onset of Stroke Symptoms
Onset of symptoms known: Yes
Date of onset of symptoms: 06/17/24
Time of onset of symptoms: 15:20
Time pt last seen normal is known: Yes
Date last time pt seen normal: 06/17/24
Time last time pt seen normal: 15:20
History of Present Illness
History of Present Illness:
HPI: At 3:20 PM today, the patient had onset of facial asymmetry, expressive aphasia and right upper extremity weakness. A week ago, she had a stroke however she completely resolved. She is currently on Plavix 75 mg daily and Eliquis twice daily.
She was also here 1 month ago with right upper extremity weakness and aphasia. Family states she has been sleeping a lot but she was recently, either yesterday or early this morning had no right upper extremity weakness.
EXAM:
GENERAL: Well appearing in no distress
HEENT: Moist oral mucosa
CARDIOVASCULAR: No murmurs, normal heart rate, regular rhythm, No chest wall tenderness
PULMONARY: No respiratory distress, breath sounds are clear and equal
ABDOMEN: Soft with no peritoneal signs, no tenderness
NEUROLOGIC: Normal strength in the left upper and lower extremities however there is loss of strength in the right upper extremity, she has facial asymmetry, she cannot accurately state the month or her age
PSYCHIATRIC: Appropriate mental status, normal insight and judgement
EXTREMITIES: Nontender, no edema, decreased active range of motion due to weakness of the right upper
SKIN: No rash, no lesions
TIME OF INITIAL ENCOUNTER: 6:55 PM
NUMBER AND COMPLEXITY OF PROBLEMS ADDRESSED AT THE ENCOUNTER
� Chronic conditions affecting care: Recurrent CVA
� Acute Exacerbation and/or Progression of Chronic Illness: This is an acute but recurrent
� Differential Diagnosis includes: Hemorrhagic CVA, ischemic CVA, LVO
AMOUNT AND/OR COMPLEXITY OF DATA TO BE REVIEWED AND ANALYZED
� I performed an independent evaluation of and my interpretation is:
EKG: Ordered, but not performed prior to transfer
CT: Distal left M1 near complete occlusion again noted, CT brain shows evolving left infarct at the left pollard radiata
X-rays:
Laboratory Studies: White count 9.3, hemoglobin 16.2, renal function normal, mild transaminase elevation, glucose 160
Other:
� Review of other/old records: I reviewed the CTA from 1 week ago that showed left distal MCA M1 segment 9 mm segment of severe nonocclusive stenosis
� Clinical information was obtained by an independent historian: I spoke to son, daughter, and son-in-law
� Prescriptions/Medications Considered but not given: No TNKase patient is on Eliquis
� Further testing considered but not performed:
RISK OF COMPLICATIONS AND/OR MORBIDITY OR MORTALITY OF PATIENT MANAGEMENT
� Social determinants of health affecting care: Lives at home
� Discussion with other providers: Dr. Gonsalez, I also spoke to [facility] for transfer
� Escalation of care including admission/observation vs risk of discharge considered: Seen as a stroke alert. Onset symptoms 3.5hrs ago. 9d ago here w/ aphasia and RUE weakness; Then, L MCA 1 severe non-occlusive stenosis, on
Eliquis and Plavix. This was also present on imaging 1M prior. NIHSS 6 (age/month wrong, facial palsy, R arm drift). As the patient reportedly did have an evaluation at [facility] very recently, I called [facility] as she now has rather significant
meghana�I spoke to Dr. Ramirez who accepts in transfer.
Past History
Past History
ED Past Medical History: HTN; Negative Hypercholesterolemia, IDDM, NIDDM, [place] or Renal failure
ED Past Surgical History: Cholecystectomy
Social History
Tobacco: Non-smoker
Alcohol: Occasional
Drug: None
Personal:
Living: with family
Employment: Employed
Family History
Family History: Hypertension
Phy Exam
Physical Exam
Physical Exam:
See HPI
Course
Orders/Labs/Results
Orders:
Orders
06/17/24 18:52
CT Head W/o Cont STROKE ALERT Urgent
Comment:
Reason For Exam: aphasia
CT Head/Neck Ang STROKE ALERT Urgent
Comment:
Reason For Exam: aphasia
Complete Blood Count/With Diff Urgent
Comprehensive Metabolic Panel Urgent
PT/INR [Prothrombin Time] Urgent
Diphenhydramine [Benadryl] 50 mg .ROUTE .STK-MED ONE
MethylPREDNISolone PF [Solu-Medrol Pf] 125 mg .ROUTE .STK-MED ONE
06/17/24 18:53
MethylPREDNISolone PF [Solu-Medrol Pf] 125 mg IV NOW STA
06/17/24 18:55
Diphenhydramine [Benadryl] 50 mg IV NOW STA
06/17/24 18:57
EPINEPHrine [Adrenalin 1 mg/10 ml] 1 mg .ROUTE .STK-MED ONE
06/17/24 19:45
Electrocardiogram (*1) Urgent
Reason for Study: TIA/Stroke
EKG- Treatment ONCE
06/17/24 19:46
0.9% Sodium Chloride 1000 ml [Nss] 1,000 ml IV BOLUS
Abnormal Lab Results
06/17/24 06/17/24
18:48 18:52
RBC 5.57 H 10^6/uL
(4.20-5.40)
Hgb 16.2 H g/dL
(12.0-16.0)
Absolute Monos (auto) 0.8 H 10^3/uL
(0.1-0.6)
Lymphocytes % 17.6 L %
(20.5-51.1)
PT 15.4 H Sec
(11.4-14.6)
Carbon Dioxide 19 L mmol/L
(22-30)
Glucose 160 H mg/dl
(70-99)
Calcium 10.4 H mg/dl
(8.4-10.2)
AST 68 H U/L
(14-36)
ALT 53 H U/L
(0-35)
Alkaline Phosphatase 142 H U/L
(38-126)
POC Glucose 157 H mg/dl
(70-99)
06/17/24 18:52
06/17/24 18:52
Vital Signs
Initial and Last Documented VS:
Initial Vital Signs
BP
169/78
06/17/24 18:50
Last Documented Vital Signs
Temp Pulse Resp BP Pulse Ox
98.3 F 109 16 165/87 92
06/17/24 19:17 06/17/24 20:00 06/17/24 20:00 06/17/24 20:00 06/17/24 19:45
*Critical Care Note
Total Time (30-74mins, 75-104mins- exclusive of procedures): Not Applicable
ED Attending Note
-
Portions of this chart may have been created with voice recognition software.� Occasional wrong word or��sound alike� substitutions may have occurred due to the inherent limitations of voice recognition software.
Discharge Plan
Departure
Patient Disposition: Acute Care Hospital
Date of Disposition: 06/17/24
Time of Disposition: 19:42
Discharge Problem:
CVA (cerebral vascular accident)
Prescriptions:
No Action
Eliquis 5 MG tablet
5 mg PO BID
famotidine 20 mg Tablet
20 mg PO BID Qty: 60 1RF
coenzyme Q10 [CoQ-10] 100 mg Capsule
100 mg PO DAILY
cholecalciferol (vitamin D3) [Vitamin D3] 50 mcg (2,000 unit) Tablet
50 mcg PO DAILY
metformin 500 mg tablet
500 mg PO BID
thiamine HCl (vitamin B1) 100 mg tablet
100 mg PO DAILY
cyanocobalamin (vitamin B-12) 1,000 mcg/mL solution
1,000 mcg IM TH
atorvastatin 80 mg Tablet
80 mg PO QPM Qty: 30 0RF
amlodipine 5 mg Tablet
5 mg PO DAILY Qty: 30 0RF
clopidogrel [Plavix] 75 mg tablet
75 mg PO DAILY Qty: 30 0RF
lisinopril 5 mg tablet
5 mg PO DAILY Qty: 30 0RF
Hospital Transfer
Other hospital: [facility]
I certify that the patient requires transfer: Yes
Discussed case with accepting physician: Dr. Ramirez
Reason for transfer: higher level of care
Interventions
Interventions:
*Risk Screen - Suicide Last Done: 06/17/24 19:18
*General Assessment Last Done: 06/17/24 19:12
*Neglect/Abuse Screening Last Done: 06/17/24 19:18
ED- Fall Risk Assessment Last Done: 06/17/24 19:13
*ED COVID-19 Vaccine History Last Done: 06/17/24 19:12
*Nursing Disposition Last Done: 06/17/24 20:29
ED- Pulmonary Assessment Last Done: 06/17/24 19:14
ED- Neurological Assessment Last Done: 06/17/24 19:53
ED- Cardiac Assessment Last Done: 06/17/24 19:13
ED Swallowing Screen Last Done: 06/17/24 19:19
Discharge Date and Time
Discharge Date/Time: 06/17/24 20:30
Print Language: AZERI
[2024-06-17 19:00] VITALS: BP 177/90
[2024-06-17] MEDS: BENADRYL 50 MG IV (19:00)
[2024-06-17 19:01] LABS: % Basophils 0.6 % (0-2); % Eosinophils 4.3 % (0-6); % Immature Granulocytes 0.2 % (0-0.5); % Lymphocytes 17.6 % (20.5-51.1); % Monocytes 8.5 % (1.7-9.3); % Neutrophils 68.8 % (42.2-75.2); Absolute Basophils 0.1 10^3/uL (0-0.2); Absolute Eosinophils 0.4 10^3/uL (0-0.7); Absolute Lymphocytes 1.6 10^3/uL (1.2-3.4); Absolute Monocytes 0.8 10^3/uL (0.1-0.6); Absolute Neutrophils 6.4 10^3/uL (1.4-6.5); Hematocrit 45.4 % (37.0-47.0); Hemoglobin 16.2 g/dL (12.0-16.0); Mean Corp Hgb Conc. 35.7 g/dL (33.0-37.0); Mean Corpuscular Hgb 29.1 pg (27.0-31.0); Mean Corpuscular Volume 81.5 fL (81.0-99.0); Mean Platelet Volume 9.3 fL (7.4-10.4); Nucleated Red Blood Cells % 0 %; Platelet Count 271 10^3/uL (130-400); Red Blood Cell Count 5.57 10^6/uL (4.20-5.40); Red Cell Dist. Width 12.7 % (11.5-14.5); White Blood Cell Count 9.3 10^3/uL (4.8-10.8)
[2024-06-17 19:10] LABS: INR 1.24; PT 15.4 Sec (11.4-14.6)
[2024-06-17 19:32] LABS: ALT (SGPT) 53 U/L (0-35); AST (SGOT) 68 U/L (14-36); Albumin 4.6 g/dl (3.5-5.0); Blood Urea Nitrogen 13 mg/dl (7-17); Calcium 10.4 mg/dl (8.4-10.2); Carbon Dioxide 19 mmol/L (22-30); Chloride 105 mmol/L (98-107); Estimated Creatinine Clearance 52 ml/min; Glucose 160 mg/dl (70-99); Potassium 3.7 mmol/L (3.5-5.1); Sodium 137 mmol/L (135-145); Total Bilirubin 0.9 mg/dl (0.2-1.3); Total Protein 7.5 g/dl (6.3-8.2); eGFR > 60.00
[2024-06-17 19:41] LABS: Alkaline Phosphatase 142 U/L (38-126)
[2024-06-17 20:00] VITALS: BP 165/87
[2024-06-17] MEDS: NSS 1000 IV (20:09)
== END 2024-06-17 20:30 | disposition short-term general hospital (02) ==
LOC: EMR 18:43
PROVIDERS: EMERGENCY PHYSICIAN Emergency Medicine; FAMILY PHYSICIAN Family Medicine
DX: I63.9 Cerebral infarction, unspecified (principal); R47.01 Aphasia; I10 Essential (primary) hypertension; Z79.01 Long term (current) use of anticoagulants; Z79.02 Long term (current) use of antithrombotics/antiplatelets; Z82.49 Family history of ischemic heart disease and other diseases of the circulatory system; Z86.73 Personal history of transient ischemic attack (TIA), and cerebral infarction without residual deficits; Z90.49 Acquired absence of other specified parts of digestive tract
CPT/HCPCS: 99284; 96374; 96375; 96361; 70450; 70496; 70498; 80053; 82962; 85025; 85610; Q9967

== ENCOUNTER 2024-07-20 06:06 | Outpatient (RCR) | payer OTHER, SELFPAY | END 2024-07-20 23:59 | disposition home or self-care (01) | LOC: RPT 06:06 | PROVIDERS: ATTENDING PHYSICIAN Physical Medicine & Rehabilitation; FAMILY PHYSICIAN Family Medicine | DX: I69.328 Other speech and language deficits following cerebral infarction (principal); I69.320 Aphasia following cerebral infarction; I69.392 Facial weakness following cerebral infarction; I69.351 Hemiplegia and hemiparesis following cerebral infarction affecting right dominant side; Z73.6 Limitation of activities due to disability; R26.89 Other abnormalities of gait and mobility | CPT/HCPCS: 92507; 92523; 97163; 97167; 97530; 97535 ==

== ENCOUNTER 2024-08-31 13:00 | Outpatient (RCR) | payer OTHER, SELFPAY | END 2024-08-31 23:59 | disposition home or self-care (01) | LOC: RPT 13:00 | PROVIDERS: ATTENDING PHYSICIAN Physical Medicine & Rehabilitation; FAMILY PHYSICIAN Family Medicine | DX: R26.89 Other abnormalities of gait and mobility (principal); Z73.6 Limitation of activities due to disability; Z86.73 Personal history of transient ischemic attack (TIA), and cerebral infarction without residual deficits | CPT/HCPCS: 92507; 97110; 97112; 97116; 97530; 97535 ==

== ENCOUNTER 2024-09-29 09:59 | Outpatient (RCR) | payer OTHER, SELFPAY | END 2024-09-29 23:59 | disposition home or self-care (01) | LOC: RPT 09:59 | PROVIDERS: ATTENDING PHYSICIAN Physical Medicine & Rehabilitation; FAMILY PHYSICIAN Family Medicine | DX: I69.328 Other speech and language deficits following cerebral infarction (principal); I69.351 Hemiplegia and hemiparesis following cerebral infarction affecting right dominant side; I69.320 Aphasia following cerebral infarction; Z86.73 Personal history of transient ischemic attack (TIA), and cerebral infarction without residual deficits; I69.398 Other sequelae of cerebral infarction; R26.89 Other abnormalities of gait and mobility; Z73.6 Limitation of activities due to disability | CPT/HCPCS: 92507; 97110; 97112; 97116; 97530; 97535 ==

== ENCOUNTER 2024-10-30 10:15 | Outpatient (RCR) | payer OTHER, SELFPAY | END 2024-10-30 23:59 | disposition home or self-care (01) | LOC: RPT 10:15 | PROVIDERS: ATTENDING PHYSICIAN Physical Medicine & Rehabilitation; FAMILY PHYSICIAN Family Medicine | DX: I69.328 Other speech and language deficits following cerebral infarction (principal); I69.351 Hemiplegia and hemiparesis following cerebral infarction affecting right dominant side; I69.320 Aphasia following cerebral infarction; I69.398 Other sequelae of cerebral infarction; R26.89 Other abnormalities of gait and mobility; Z73.6 Limitation of activities due to disability; Z86.73 Personal history of transient ischemic attack (TIA), and cerebral infarction without residual deficits | CPT/HCPCS: 92507; 97110; 97112; 97116; 97530; 97535 ==

== ENCOUNTER 2024-11-30 10:15 | Outpatient (RCR) | payer OTHER, SELFPAY | END 2024-11-30 23:59 | disposition home or self-care (01) | LOC: RPT 10:15 | PROVIDERS: ATTENDING PHYSICIAN Physical Medicine & Rehabilitation; FAMILY PHYSICIAN Family Medicine | DX: I69.328 Other speech and language deficits following cerebral infarction (principal); I69.351 Hemiplegia and hemiparesis following cerebral infarction affecting right dominant side; I69.320 Aphasia following cerebral infarction; Z73.6 Limitation of activities due to disability; I69.398 Other sequelae of cerebral infarction; R26.89 Other abnormalities of gait and mobility; Z86.73 Personal history of transient ischemic attack (TIA), and cerebral infarction without residual deficits | CPT/HCPCS: 92507; 97110; 97112; 97116; 97530; 97535 ==

== ENCOUNTER 2024-12-28 09:33 | Outpatient (RCR) | payer OTHER, SELFPAY | END 2024-12-28 23:59 | disposition home or self-care (01) | LOC: RPT 09:33 | PROVIDERS: ATTENDING PHYSICIAN Physical Medicine & Rehabilitation; FAMILY PHYSICIAN Family Medicine | DX: I69.351 Hemiplegia and hemiparesis following cerebral infarction affecting right dominant side (principal); R26.89 Other abnormalities of gait and mobility; Z73.6 Limitation of activities due to disability; I69.328 Other speech and language deficits following cerebral infarction; I69.320 Aphasia following cerebral infarction; I69.398 Other sequelae of cerebral infarction; Z86.73 Personal history of transient ischemic attack (TIA), and cerebral infarction without residual deficits | CPT/HCPCS: 92507; 97110; 97112; 97116; 97530; 97535 ==